=== PATIENT | female | born 1970 | race Caucasian/White ===

== ENCOUNTER 2016-09-10 09:07 | Emergency (ER) | payer BC, OTHER ==
[2016-09-10 09:34] LABS: BILIRUBIN,URINE NEGATIVE (NEGATIVE); PH,URINE 6.5 PH (5.0-7.5)
[2016-09-10 09:37] LABS: HCG UR QUAL NEGATIVE; UA CHARGE (STRIP ONLY) YES; UR CULTURE IF IND NOT INDICATED
--- NOTE | 2016-09-10 10:11 | ED Physician Documentation ---
PD HPI ABD PAIN - Stated complaint Stated Complaint: ABD PAIN,CHEST PRESSURE - Chief complaint Chief Complaint: Abd Pain - History obtained from History obtained from: Patient - History of Present Illness Timing - onset: Enter time (1630), Last night Timing - duration: Hours Timing - details: Abrupt onset, Still present, Waxing and waning Pain level max: 8 Pain level now: 1 Quality: Sharp, Pain Location: RUQ Radiation: Right flank Improved by: Laying still Worsened by: Moving, Position, Palpation Associated symptoms: Nausea, Vomiting Similar symptoms before: No diagnosis Recently seen: Not recently seen - Additional information Additional information: 46 y/o female has been having episodes of right sided abdominal pain for the past 2 months. Yesterday afternoon she had an episode of this that started just after she had a salad. Her pain subsided and she was able to sleep and she awoke had return of the pain and vomited. Her pain is now nearly resolved. Review of Systems Constitutional: denies: Fever Throat: denies: Sore throat Cardiac: denies: Chest pain / pressure Respiratory: denies: Dyspnea, Cough GI: reports: Abdominal Pain, Nausea PD PAST MEDICAL HISTORY - Past Medical History Past Medical History: Yes Cardiovascular: Hypertension - Past Surgical History Past Surgical History: No - Present Medications Home Medications: Ambulatory Orders Medication Instructions Recorded Confirmed Desogestrel-Ethinyl Estradiol 1 each PO 08/17/13 08/17/13 [Reclipsen] Metoprolol Succinate [Toprol Xl] 50 mg PO DAILY 08/17/13 08/17/13 - Allergies Allergies/Adverse Reactions: Allergies Allergy/AdvReac Type Severity Reaction Status Date / Time citalopram hydrobromide * Allergy Intermediate Anxiety Verified 08/17/13 04:08 [From Celexa] sulfamethoxazole AdvReac Intermediate pain Verified 08/17/13 04:09 [From Septra] trimethoprim [From Septra] AdvReac Intermediate pain Verified 08/17/13 04:09 - Social History Does the pt smoke?: No Smoking Status: Former smoker Does the pt drink ETOH?: No Does the pt have substance abuse?: No - Immunizations Immunizations are current?: Yes - POLST Patient has POLST: No PD ED PE NORMAL - Vitals Vital signs reviewed: Yes (hypertensvie ) - General General: Alert and oriented X 3, No acute distress, Well developed/nourished - HEENT HEENT: Atraumatic - Neck Neck: Supple, no meningeal sign - Cardiac Cardiac: RRR, No murmur - Respiratory Respiratory: No respiratory distress, Clear bilaterally - Abdomen Abdomen: Soft, Other (mild right upper quadrant tenderness to palpation,. ) - Back Back: No CVA TTP, No spinal TTP - Derm Derm: Normal color, Warm and dry, No rash - Extremities Extremities: No deformity, No edema - Neuro Neuro: No motor deficit, No sensory deficit - Psych Psych: Normal mood, Normal affect Results - Vitals Vitals: Vital Signs - 24 hr 09/10/16 09/10/16 09/10/16 09:15 11:20 12:27 Temperature 36.7 C 36.7 C Heart Rate 74 61 63 Respiratory 16 16 16 Rate Blood Pressure 167/84 H 143/92 H 133/72 H O2 Saturation 100 100 97 Oxygen O2 Source Room air - Labs Labs: Laboratory Tests 09/10/16 09/10/16 09/10/16 09:25 09:36 09:36 WBC 8.3 RBC 4.83 Hgb 14.2 Hct 41.5 MCV 86.0 MCH 29.5 MCHC 34.3 RDW 13.8 Plt Count 250 MPV 8.6 Neut # 5.2 Lymph # 2.6 Parmer # 0.4 Eos # 0.1 Baso # 0.0 Absolute Nucleated RBC 0.00 Nucleated RBCs 0.0 Sodium 136 Potassium 4.0 Chloride 103 Carbon Dioxide 26 Anion Gap 7.0 BUN 11 Creatinine 0.6 Estimated GFR (MDRD) 109 Glucose 111 H Calcium 9.0 Total Bilirubin 0.8 AST 20 ALT 16 Alkaline Phosphatase 61 Total Protein 8.0 Albumin 4.4 Globulin 3.6 Albumin/Globulin Ratio 1.2 Lipase 23 Urine Color YELLOW Urine Clarity CLEAR Urine pH 6.5 Ur Specific [place] <=1.005 Urine Protein NEGATIVE Urine Glucose (UA) NEGATIVE Urine Ketones NEGATIVE Urine Occult Blood NEGATIVE Urine Nitrite NEGATIVE Urine Bilirubin NEGATIVE Urine Urobilinogen 0.2 (NORMAL) Ur Leukocyte Esterase NEGATIVE Ur Microscopic Review NOT INDICATED Urine Culture Comments NOT INDICATED Urine HCG, Qual NEGATIVE - Rads (name of study) Limited abdomen ultrasound Radiology: Prelim report reviewed (Impression: 1. Gallbladder polyp may have increased in size now measuring 6 mm, previously 4 mm. Continued sonographic followup may be considered. 2. Moderately fatty infiltrated liver. 3. No evidence for acute cholecystitis.), EMP read indepedently, See rad report Procedures - Bedside sono Bedside sono by EMP: with the use of bedside ultrasound the GB is imaged and there are no obvious stones or wall swelling. The gb is mildly tender. PD MEDICAL DECISION MAKING - ED course Complexity details: reviewed old records, reviewed results, re-evaluated patient , considered differential, d/w patient ED course: 46 y/o female with an acute pain episode has a gallbladder polyp that appears to have grown in size since February of last year. There is no evidence of obstruction or cholecystitis. Her pain is now resolved and she is referred to the surgeon for follow up. Departure - Departure Disposition: Home, Self Care Clinical Impression: Gallbladder attack Condition: Stable Instructions: ED Gallstone W Biliary Colic, ED Diet Low Fat Follow-Up: Jovon Pace MD [Primary Care Provider] - Desmond Roland MD [Provider Admit Priv/Credential] - Comments: Today in the Emergency Department your blood pressure was elevated. This can happen from the stress of the visit itself, from a current illness or circumstance or from uncontrolled hypertension. If you take blood pressure medications take your usual mediations, have your blood pressure re-checked in an appropriate setting and follow up any elevation with your primary care doctor. Discharge Date/Time: 09/10/16 12:28
[2016-09-10 10:24] LABS: BASOPHILS % (AUTO) 0.4 %; EOSINOPHILS # (AUTO) 0.1 10^3/uL (0.0-0.7); EOSINOPHILS % (AUTO) 0.7 %; HCT - HEMATOCRIT 41.5 % (37.0-47.0); HGB - HEMOGLOBIN 14.2 g/dL (12.0-16.0); LYMPHOCYTES # (AUTO) 2.6 10^3/uL (1.5-3.5); LYMPHOCYTES % (AUTO) 31.5 %; MEAN CORPUSCULAR HEMOGLOBIN 29.5 pg (27.0-31.0); MEAN CORPUSCULAR HGB CONC 34.3 g/dL (32.0-36.0); MEAN PLATELET VOLUME 8.6 fL (7.9-10.8); MONOCYTES # (AUTO) 0.4 10^3/uL (0.0-1.0); MONOCYTES % (AUTO) 4.9 %; NEUTROPHILS # (AUTO) 5.2 10^3/uL (1.5-6.6); NEUTROPHILS % (AUTO) 62.5 %; RED BLOOD COUNT 4.83 10^6/uL (4.20-5.40); RED CELL DISTRIBUTION WIDTH 13.8 % (12.0-15.0); UNCORRECTED WHITE BLOOD COUNT 8.3 x10^3/uL; WHITE BLOOD COUNT 8.3 x10^3/uL (4.8-10.8)
[2016-09-10 10:32] LABS: ALBUMIN/GLOBULIN RATIO 1.2 (1.0-2.2); BILIRUBIN,TOTAL 0.8 mg/dL (0.2-1.0); CREATININE 0.6 mg/dL (0.4-1.0)
--- NOTE | 2016-09-10 11:58 | Ultrasound Preliminary Report ---
Exam: US Abdomen Limited IMPRESSION: 1. Gallbladder polyp may have increased in size now measuring 6 mm, previously 4 mm. Continued sonogr aphic follow-up may be considered. 2. Moderately fatty infiltrated liver. 3. No evidence for acute cholecystitis. [facility] SITE ID: [id number]
--- NOTE | 2016-09-10 12:01 | Ultrasound Report ---
EXAM: ABDOMEN ULTRASOUND LIMITED, RUQ EXAM DATE: 09/10/2016 11:36 AM. CLINICAL HISTORY: Right upper quadrant abdominal pain. COMPARISON: 02/15/2016. TECHNIQUE: Real-time scanning was performed with static images obtained. FINDINGS: Liver: The liver is moderately echogenic with respect to the right kidney. This limits evaluation but no focal masses identified. Left hepatic hypoechoic focus noted previously is not clearly identified currently. 14.6 cm. Main portal vein flow: Hepatopetal. Gallbladder: Probable polyp again identified measuring 6 mm. No calculi or sonographic Goss sign. N o wall thickening evident. Biliary System: CBD measures 2.4 mm. No intrahepatic or extrahepatic ductal dilatation. Other: Examination suboptimal secondary to body habitus. No ascites evident. IMPRESSION: 1. Gallbladder polyp may have increased in size now measuring 6 mm, previously 4 mm. Continued sonogr aphic follow-up may be considered. 2. Moderately fatty infiltrated liver. 3. No evidence for acute cholecystitis. [facility] Referring Provider Line: [phone] SITE ID: [id number]
[2016-09-10 12:28] VITALS: BP 133/72
== END 2016-09-10 12:28 | disposition home or self-care (01) ==
LOC: ED 09:07
DX: K82.4 Cholesterolosis of gallbladder (principal); K76.0 Fatty (change of) liver, not elsewhere classified; I10 Essential (primary) hypertension; Z87.891 Personal history of nicotine dependence
CPT/HCPCS: 36415; 76705; 80053; 81001; 81003; 81025; 83690; 85025; 87086; 99283; 99284

== ENCOUNTER 2016-09-26 12:00 | Day surgery (SDC) | payer BC ==
[2016-09-26] MEDS ORDERED: ceFAZolin 2 GM/50 ML 50 ML IV ONE (12:05)
[2016-09-26] MEDS ORDERED: LACTATED RINGERS 1,000 ML IV ONE ×2 (12:22→15:16)
[2016-09-26 12:25] LABS: HCG UR QUAL NEGATIVE
[2016-09-26] MEDS ORDERED: BUPIVACAINE 0.5%-EPI 1:200000 PF 30 ML VIAL SUBQ ONE ×2 (13:24→14:16)
[2016-09-26] MEDS ORDERED: DEXAMETHASONE 4 MG/ML VIAL IVP ONE (14:17)
[2016-09-26] MEDS ORDERED: PROPOFOL 200 MG/20 ML VIAL IVP ONE (14:17)
[2016-09-26] MEDS ORDERED: LIDOCAINE-MPF 2% 5 ML VIAL IM ONE (14:17)
[2016-09-26] MEDS ORDERED: fentaNYL 100 MCG/2 ML VIAL IVP ONE (14:17)
[2016-09-26] MEDS ORDERED: ROCURONIUM 50 MG/5 ML VIAL IVP ONE (14:17)
[2016-09-26] MEDS ORDERED: SUCCINYLCHOLINE 200 MG/10 ML VIAL IVP ONE (14:17)
[2016-09-26] MEDS ORDERED: MIDAZOLAM 2 MG/2 ML VIAL IVP ONE (14:17)
[2016-09-26] MEDS ORDERED: KETOROLAC 30 MG/ML VIAL IVP ONE (14:17)
[2016-09-26] MEDS ORDERED: ONDANSETRON 4 MG/2 ML VIAL IVP ONE (14:17)
[2016-09-26] MEDS: HYDROmorphone 1 MG/ML SYRINGE ONE ×4 (15:00→15:18)
[2016-09-26] MEDS ORDERED: oxyCOD/ACETAMIN 5 MG/325 MG TABLET PO ONE (15:46)
[2016-09-26] MEDS ORDERED: ACETAMINOPHEN/CODEINE 300 MG/30 MG TABLET PO ONE (15:55)
[2016-09-26 16:34] VITALS: BP 129/62
--- NOTE | 2016-09-27 06:42 | OPERATIVE REPORT ---
DATE OF SURGERY: 09/26/2016 00:00:00 PREOPERATIVE DIAGNOSIS: Gallbladder polyp. PREOPERATIVE DIAGNOSIS: Gallbladder polyp. POSTOPERATIVE DIAGNOSES: Laparoscopic cholecystectomy. SURGEON: Kathleen García MD INDICATION FOR PROCEDURE: This is a 46-year-old female with a gallbladder polyp , which has been monitored and is increasing in size, and is now being taken for an elective laparoscopic cholecystectomy. FINDINGS: After obtaining informed consent from the patient, she was brought into the operating room and positioned on the operating table in the supine position, taking note of pressure points. She was administered 2 grams of Ancef. She was prepped and draped in the usual sterile fashion. A time-out was taken according to protocol. An infraumbilical 1 cm incision was created and deepened down to the umbilical stalk. This was grasped and elevated and the Veress needle inserted and the abdominal cavity entered. The abdominal cavity was insufflated. A 5 mm incision was created in the epigastric region to the right of the midline, and an Optiview trocar was inserted at this site. The Veress needle was removed and a 12 mm port placed in its place. Two additional 5 mm ports were placed along the right lateral abdominal wall. The gallbladder was grasped and retracted over the dome of the liver. There were some adhesions of the underlying omentum to the gallbladder, which were taken down with electrocautery. The base of the gallbladder was grasped and was retracted medially, exposing the lateral attachments; these were taken down with electrocautery, working my way medially to expose the cystic duct. The cystic duct was circumferentially dissected from surrounding fatty tissue. The cystic artery was dissected similarly. The back wall of the gallbladder was dissected off of the gallbladder fossa. The critical view was obtained. The cystic duct was clipped with 2 clips placed distally and 1 proximally and divided. The cystic artery was divided in a similar manner. The gallbladder was then removed from the liver bed with electrocautery. Gallbladder was placed in a specimen bag and was removed through the umbilical port. The liver bed was then inspected for any signs of bleeding, and none were noted. The umbilical port site was then closed with a Azeem-Jered 0 Vicryl suture. The abdominal cavity was then allowed to desufflate, 30 mL of local anesthetic was utilized. The skin incisions were closed with 4-0 Monocryl and Dermabond was applied. The patient was extubated and taken to recovery in stable condition. ESTIMATED BLOOD LOSS: Minimal. SPECIMEN: Gallbladder. COMPLICATIONS: None. JOB #: [id number] EXT JOB #:[id number] MTDD
== END 2016-09-26 12:01 | disposition home or self-care (01) ==
LOC: SDS 12:00
PROVIDERS: ATTEND Surgery
PROC: 0FT44ZZ Resection of Gallbladder, Percutaneous Endoscopic Approach (ICD-10-PCS; principal; 2016-09-26 13:15)
DX: K81.1 Chronic cholecystitis (principal); I10 Essential (primary) hypertension; Z83.3 Family history of diabetes mellitus; Z80.9 Family history of malignant neoplasm, unspecified; Z87.891 Personal history of nicotine dependence; Z88.2 Allergy status to sulfonamides
CPT/HCPCS: 47562; 81025; A9270; J0690; J1170; J7120; 88304

== ENCOUNTER 2018-03-31 18:10 | Emergency (ER) | payer BC ==
[2018-03-31 19:04] LABS: BILIRUBIN,URINE NEGATIVE (NEGATIVE); GLUCOSE, URINE (UA) NEGATIVE (NEGATIVE); KETONES,URINE (UA) NEGATIVE (NEGATIVE); LEUKOCYTE ESTERASE, URINE SMALL (NEGATIVE); NITRITE,URINE NEGATIVE (NEGATIVE); OCCULT BLOOD,URINE NEGATIVE (NEGATIVE); PH,URINE 5.5 PH (5.0-7.5); PROTEIN,URINE NEGATIVE (NEGATIVE); UROBILINOGEN,URINE 0.2 (NORMAL) E.U./dL (NORMAL)
[2018-03-31 19:07] LABS: CLARITY,URINE CLEAR (CLEAR)
[2018-03-31 19:12] LABS: BASOPHILS % (AUTO) 0.2 %; HGB - HEMOGLOBIN 14.3 g/dL (12.0-16.0); LYMPHOCYTES # (AUTO) 0.8 10^3/uL (1.5-3.5); LYMPHOCYTES % (AUTO) 6.3 %; MEAN CORPUSCULAR HEMOGLOBIN 28.9 pg (27.0-31.0); MEAN CORPUSCULAR HGB CONC 33.4 g/dL (32.0-36.0); MEAN CORPUSCULAR VOLUME 86.5 fL (81.0-99.0); MEAN PLATELET VOLUME 7.9 fL (7.9-10.8); MONOCYTES # (AUTO) 0.5 10^3/uL (0.0-1.0); MONOCYTES % (AUTO) 3.4 %; NEUTROPHILS # (AUTO) 12.1 10^3/uL (1.5-6.6); NEUTROPHILS % (AUTO) 90.1 %; PLT - PLATELET COUNT 238 10^3/uL (130-450); RED BLOOD COUNT 4.96 10^6/uL (4.20-5.40); WHITE BLOOD COUNT 13.4 x10^3/uL (4.8-10.8)
[2018-03-31 19:16] LABS: ALBUMIN 4.8 g/dL (3.2-5.5); ALBUMIN/GLOBULIN RATIO 1.2 (1.0-2.2); BILIRUBIN,TOTAL 0.6 mg/dL (0.2-1.0); CALCIUM 9.2 mg/dL (8.5-10.3); CREATININE 0.7 mg/dL (0.4-1.0); TOTAL PROTEIN 8.7 g/dL (6.7-8.2)
[2018-03-31 19:19] LABS: BACTERIA,URINE None Seen /HPF (None Seen); RBC,URINE None Seen /HPF (0-5); SQUAMOUS EPITHELIAL CELL,UR MOD Squamous (<= Few)
--- NOTE | 2018-03-31 19:19 | ED Physician Documentation ---
PD HPI URI - Stated complaint Stated Complaint: SINUS PX/LOW BACK PX/ABD PX/GAS - Chief complaint Chief Complaint: Abd Pain - History obtained from History obtained from: Patient - History of Present Illness Timing - onset: Today (47-year-old woman who became acutely ill today with sinus, abdominal, and back pain. She has had fevers and chills. She vomited Twice. No diarrhea. No sick contacts or recent travel.) Review of Systems Constitutional: reports: Fever, Chills Ears: denies: Ear pain Nose: reports: Rhinorrhea / runny nose, Congestion, Sinus pressure / pain Throat: denies: Sore throat Cardiac: denies: Chest pain / pressure, Palpitations Respiratory: denies: Dyspnea, Cough PD PAST MEDICAL HISTORY - Past Medical History Past Medical History: Yes Cardiovascular: Hypertension Respiratory: None Endocrine/Autoimmune: None GI: Ulcers : None HEENT: None Psych: Anxiety Musculoskeletal: None Derm: None - Past Surgical History Past Surgical History: No General: Cholecystectomy - Present Medications Home Medications: Ambulatory Orders Medication Instructions Recorded Confirmed Desogestrel-Ethinyl Estradiol 1 each PO DAILY 08/17/13 09/26/16 [Reclipsen] Metoprolol Succinate [Toprol Xl] 50 mg PO DAILY 08/17/13 09/26/16 Levofloxacin [Levaquin] 750 mg PO DAILY #7 tablet 03/31/18 Pantoprazole [Protonix] 40 mg PO 03/31/18 03/31/18 - Allergies Allergies/Adverse Reactions: Allergies Allergy/AdvReac Type Severity Reaction Status Date / Time citalopram hydrobromide * Allergy Intermediate Anxiety Verified 03/31/18 19:11 [From Celexa] sulfamethoxazole AdvReac Intermediate pain Verified 03/31/18 19:11 [From Septra] trimethoprim [From Septra] AdvReac Intermediate pain Verified 03/31/18 19:11 - Social History Does the pt smoke?: No Smoking Status: Never smoker Does the pt drink ETOH?: No Does the pt have substance abuse?: No - Immunizations Immunizations are current?: Yes - POLST Patient has POLST: No PD ED PE NORMAL - Vitals Vital signs reviewed: Yes - General General: Alert and oriented X 3, No acute distress - HEENT HEENT: PERRL, EOMI, Pharynx benign - Neck Neck: Supple, no meningeal sign, No bony TTP - Cardiac Cardiac: RRR, No murmur - Respiratory Respiratory: No respiratory distress, Clear bilaterally - Abdomen Abdomen: Normal bowel sounds, Soft, Non tender - Back Back: No CVA TTP, No spinal TTP - Derm Derm: Normal color, Warm and dry - Extremities Extremities: No edema, No calf tenderness / cord - Neuro Neuro: Alert and oriented X 3, Normal speech Results - Vitals Vitals: Vital Signs - 24 hr 03/31/18 03/31/18 03/31/18 18:12 19:25 21:11 Temperature 38 C H 37.9 C H 37.6 C H Heart Rate 123 H 110 H 109 H Respiratory 20 18 16 Rate Blood Pressure 159/114 H 170/97 H 146/85 H O2 Saturation 100 100 97 Oxygen O2 Source Room air - EKG (time done) 1831 Rate: Rate (enter#) (113) Rhythm: Sinus tachycardia Alvin: Normal Intervals: Normal MN QRS: Normal Ischemia: Normal ST segments Computer interpretation: Agree with computer - Labs Labs: Laboratory Tests 03/31/18 03/31/18 03/31/18 18:56 18:56 18:56 WBC 13.4 H RBC 4.96 Hgb 14.3 Hct 42.9 MCV 86.5 MCH 28.9 MCHC 33.4 RDW 13.0 Plt Count 238 MPV 7.9 Neut # (Auto) 12.1 H Lymph # (Auto) 0.8 L [place] # (Auto) 0.5 Eos # (Auto) 0.0 Baso # (Auto) 0.0 Absolute Nucleated RBC 0.00 Nucleated RBC % 0.0 Sodium 130 L Potassium 3.9 Chloride 98 L Carbon Dioxide 24 Anion Gap 8.0 BUN 15 Creatinine 0.7 Estimated GFR (MDRD) 90 Glucose 128 H Calcium 9.2 Total Bilirubin 0.6 AST 26 ALT 22 Alkaline Phosphatase 62 Total Protein 8.7 H Albumin 4.8 Globulin 3.9 Albumin/Globulin Ratio 1.2 Lipase 27 Urine Color YELLOW Urine Clarity CLEAR Urine pH 5.5 Ur Specific [place] 1.010 Urine Protein NEGATIVE Urine Glucose (UA) NEGATIVE Urine Ketones NEGATIVE Urine Occult Blood NEGATIVE Urine Nitrite NEGATIVE Urine Bilirubin NEGATIVE Urine Urobilinogen 0.2 (NORMAL) Ur Leukocyte Esterase SMALL H Urine RBC None Seen Urine WBC 0-3 Ur Squamous Epith Cells MOD Squamous H Urine Bacteria None Seen Ur Microscopic Review INDICATED Urine Culture Comments NOT INDICATED Influenza A (Rapid) Influenza B (Rapid) 03/31/18 19:30 WBC RBC Hgb Hct MCV MCH MCHC RDW Plt Count MPV Neut # (Auto) Lymph # (Auto) [place] # (Auto) Eos # (Auto) Baso # (Auto) Absolute Nucleated RBC Nucleated RBC % Sodium Potassium Chloride Carbon Dioxide Anion Gap BUN Creatinine Estimated GFR (MDRD) Glucose Calcium Total Bilirubin AST ALT Alkaline Phosphatase Total Protein Albumin Globulin Albumin/Globulin Ratio Lipase Urine Color Urine Clarity Urine pH Ur Specific [place] Urine Protein Urine Glucose (UA) Urine Ketones Urine Occult Blood Urine Nitrite Urine Bilirubin Urine Urobilinogen Ur Leukocyte Esterase Urine RBC Urine WBC Ur Squamous Epith Cells Urine Bacteria Ur Microscopic Review Urine Culture Comments Influenza A (Rapid) Negative Influenza B (Rapid) Negative - Rads (name of study) 2v chest Radiology: EMP read contemporaneously (LLL opacity) CT A/P Radiology: EMP read contemporaneously (Normal) PD MEDICAL DECISION MAKING - ED course ED course: This is a 47-year-old woman with an acute syndrome consisting of sinus pain, abdominal and back pain. She was somewhat tachycardic and febrile which improved with time and fluids. She continued to appear well and nontoxic. She had a modestly elevated white count. Workup included abdominal CT which was negative for acute findings and chest x-ray which was suggestive of an early left lower lobe pneumonia. She was treated with Levaquin. Departure - Departure Disposition: 01 Home, Self Care Clinical Impression: Abdominal pain Qualifiers: Abdominal location: generalized Qualified Code(s): R10.84 - Generalized abdominal pain Fever Qualifiers: Fever type: due to other condition Qualified Code(s): R50.81 - Fever presenting with conditions classified elsewhere Pneumonia Qualifiers: Pneumonia type: due to unspecified organism Laterality: left Lung location: lower lobe of lung Qualified Code(s): J18.1 - Lobar pneumonia, unspecified organism Condition: Good Record reviewed to determine appropriate education?: Yes Instructions: ED Pneumonia Adult, ED Fever Unconf Cause Prescriptions: Levofloxacin [Levaquin] 750 mg PO DAILY #7 tablet Comments: Call your doctor to arrange a follow-up appointment, make the next available appointment. In the interim, return anytime if worse or if new symptoms develop. Forms: Activity restrictions
[2018-03-31] MEDS ORDERED: IBUPROFEN 800 MG TABLET PO STA (19:36)
[2018-03-31] MEDS ORDERED: IOVERSOL 320 100 ML VIAL IVP ONE ×2 (20:29→20:58)
--- NOTE | 2018-03-31 21:16 | XRAY Report ---
Reason: fever Procedure Date: 03/31/2018 Accession Number: [id number] / [id number] Procedure: XR - Chest 2 View X-Ray CPT Code: 69232 FULL RESULT: EXAM: CHEST RADIOGRAPHY EXAM DATE: 03/31/2018 08:37 PM. CLINICAL HISTORY: Fever. COMPARISON: None available. TECHNIQUE: 2 views. FINDINGS: Heart size is normal. Lung volumes are low. There is a focal patchy opacity in the left lower lobe. No pleural effusion or pneumothorax. IMPRESSION: Patchy left lower lobe opacity, possible atelectasis or pneumonia. [facility]
--- NOTE | 2018-03-31 21:29 | CT Report ---
Reason: iV only, abd pain, fever Procedure Date: 03/31/2018 Accession Number: [id number] / [id number] Procedure: CT - Abdomen/Pelvis W/ CPT Code: FULL RESULT: EXAM: CT ABDOMEN AND PELVIS EXAM DATE: 03/31/2018 08:37 PM. CLINICAL HISTORY: Abdominal pain and fever COMPARISONS: None. TECHNIQUE: Routine helical CT imaging was performed through the abdomen and pelvis. IV contrast: 100 ML OPTIRAY 320. Enteric contrast: No. Reconstructions: Coronal and sagittal. In accordance with CT protocol optimization, one or more of the following dose reduction techniques were utilized for this exam: automated exposure control, adjustment of mA and/or KV based on patient size, or use of iterative reconstructive technique. FINDINGS: Lung Bases: Unremarkable. Liver: Normal. No masses. Gallbladder/Bile Ducts: Status post cholecystectomy. No bile duct dilatation. Spleen: Normal. Pancreas: Normal. Adrenal Glands: Normal. Kidneys: Normal. No masses or hydronephrosis. Peritoneal Cavity/Bowel: Normal appendix. No acute bowel findings are seen. No evidence for bowel obstruction. No free fluid or free air. There appear to be very small fat-containing bilateral inguinal hernias, left greater than right. Pelvic Organs: Normal. The bladder and visualized pelvic organs are within normal limits. Vasculature: No aneurysms or other significant abnormality. Bones: No significant abnormality. There appear to be very small fat-containing bilateral inguinal hernias, left greater than right. IMPRESSION: 1. Normal appendix. No acute findings are seen. See above. [facility]
[2018-03-31] MEDS ORDERED: levoFLOXacin 250 MG TABLET PO STA (21:34)
[2018-03-31 21:50] VITALS: BP 140/56
== END 2018-03-31 21:45 | disposition home or self-care (01) ==
LOC: ED 18:10
DX: J18.1 Lobar pneumonia, unspecified organism (principal); R10.84 Generalized abdominal pain; I10 Essential (primary) hypertension; R00.0 Tachycardia, unspecified
CPT/HCPCS: 36415; 71046; 74177; 80053; 81001; 83690; 85025; 87275; 87276; 93005; 99283; A9270; Q9967; 81003; 87086

== ENCOUNTER 2018-07-09 10:41 | Outpatient (CLI) | payer BC ==
[2018-07-09 19:53] LABS: BASOPHILS % (AUTO) 0.4 %; EOSINOPHILS # (AUTO) 0.1 10^3/uL (0.0-0.7); EOSINOPHILS % (AUTO) 0.7 %; HGB - HEMOGLOBIN 13.9 g/dL (12.0-16.0); LYMPHOCYTES # (AUTO) 2.7 10^3/uL (1.5-3.5); LYMPHOCYTES % (AUTO) 31.7 %; MEAN CORPUSCULAR HEMOGLOBIN 29.2 pg (27.0-31.0); MEAN CORPUSCULAR HGB CONC 33.1 g/dL (32.0-36.0); MEAN CORPUSCULAR VOLUME 88.1 fL (81.0-99.0); MEAN PLATELET VOLUME 8.2 fL (7.9-10.8); MONOCYTES # (AUTO) 0.5 10^3/uL (0.0-1.0); MONOCYTES % (AUTO) 6.2 %; NEUTROPHILS # (AUTO) 5.2 10^3/uL (1.5-6.6); PLT - PLATELET COUNT 250 10^3/uL (130-450); RED BLOOD COUNT 4.77 10^6/uL (4.20-5.40); RED CELL DISTRIBUTION WIDTH 14.3 % (12.0-15.0); WHITE BLOOD COUNT 8.5 x10^3/uL (4.8-10.8)
== END 2018-07-09 10:42 | disposition home or self-care (01) ==
LOC: LAB.WCP 10:41
PROVIDERS: ATTEND Family Medicine
DX: K92.1 Melena (principal)
CPT/HCPCS: 36415; 85025

== ENCOUNTER 2018-08-20 08:00 | Outpatient (CLI) | payer BC ==
[2018-08-20 12:25] LABS: BASOPHILS % (AUTO) 0.4 %; EOSINOPHILS # (AUTO) 0.1 10^3/uL (0.0-0.7); EOSINOPHILS % (AUTO) 0.7 %; LYMPHOCYTES # (AUTO) 2.6 10^3/uL (1.5-3.5); LYMPHOCYTES % (AUTO) 30.6 %; MEAN CORPUSCULAR HEMOGLOBIN 29.2 pg (27.0-31.0); MEAN CORPUSCULAR HGB CONC 34.1 g/dL (32.0-36.0); MEAN CORPUSCULAR VOLUME 85.7 fL (81.0-99.0); MEAN PLATELET VOLUME 8.7 fL (7.9-10.8); MONOCYTES # (AUTO) 0.5 10^3/uL (0.0-1.0); MONOCYTES % (AUTO) 5.5 %; NEUTROPHILS # (AUTO) 5.3 10^3/uL (1.5-6.6); NEUTROPHILS % (AUTO) 62.8 %; PLT - PLATELET COUNT 246 10^3/uL (130-450); RED BLOOD COUNT 4.79 10^6/uL (4.20-5.40); RED CELL DISTRIBUTION WIDTH 13.5 % (12.0-15.0); WHITE BLOOD COUNT 8.4 x10^3/uL (4.8-10.8)
[2018-08-20 13:12] LABS: ALBUMIN/GLOBULIN RATIO 1.1 (1.0-2.2); ALKALINE PHOSPHATASE 51 IU/L (42-121); ALT ALANINE AMINOTRANSFERASE 17 IU/L (10-60); AST ASPARTATE AMINOTRANSFERASE 19 IU/L (10-42); BILIRUBIN,TOTAL 0.8 mg/dL (0.2-1.0); BUN - BLOOD UREA NITROGEN 19 mg/dL (6-20); CALCIUM 8.7 mg/dL (8.5-10.3); CARBON DIOXIDE - CO2 26 mmol/L (21-32); CHLORIDE 102 mmol/L (101-111); CHOL/HDL RATIO 5.3 (<4.4); CHOLESTEROL 175 mg/dL; CREATININE 0.8 mg/dL (0.4-1.0); GFR - MDRD 78 (>89); GLUCOSE 114 mg/dL (70-100); HDL CHOLESTEROL 33 mg/dL; LDL CHOLESTEROL,CALCULATED 104 mg/dL; LDL/HDL RATIO 3.2 (<4.4); SODIUM 134 mmol/L (135-145); TOTAL PROTEIN 7.5 g/dL (6.7-8.2); VLDL CHOLESTEROL 38 mg/dL
== END 2018-08-20 23:59 | disposition home or self-care (01) ==
LOC: LAB.WCP 08:00
PROVIDERS: ATTEND Family Medicine
DX: K76.0 Fatty (change of) liver, not elsewhere classified (principal); E78.5 Hyperlipidemia, unspecified; I10 Essential (primary) hypertension
CPT/HCPCS: 36415; 80053; 80061; 83721; 85025

== ENCOUNTER 2018-09-06 09:07 | Day surgery (SDC) | payer BC ==
[~2018-09-06 09:07] MED LIST: LIDO GARGLE 30 ML BOTTLE ONE
[2018-09-06] MEDS ORDERED: LACTATED RINGERS 1,000 ML IV ONE (09:25)
[2018-09-06 09:44] LABS: HCG UR QUAL NEGATIVE
[2018-09-06] MEDS ORDERED: MIDAZOLAM 2 MG/2 ML VIAL IVP ONE (12:09)
[2018-09-06] MEDS ORDERED: fentaNYL 250 MCG/5 ML VIAL IVP ONE (12:09)
[2018-09-06 13:18] VITALS: BP 131/82
== END 2018-09-06 09:08 | disposition home or self-care (01) ==
LOC: SDS 09:07
PROVIDERS: ATTEND Internal Medicine Gastroenterology
PROC: 0DBN8ZZ Excision of Sigmoid Colon, Via Natural or Artificial Opening Endoscopic (ICD-10-PCS; 2018-09-06)
PROC: 0DB38ZX Excision of Lower Esophagus, Via Natural or Artificial Opening Endoscopic, Diagnostic (ICD-10-PCS; principal; 2018-09-06 10:30)
PROC: 0DB68ZZ Excision of Stomach, Via Natural or Artificial Opening Endoscopic (ICD-10-PCS; 2018-09-06 10:30)
DX: K22.70 Barrett's esophagus without dysplasia (principal); K21.0 Gastro-esophageal reflux disease with esophagitis; K31.7 Polyp of stomach and duodenum; K63.5 Polyp of colon; K59.00 Constipation, unspecified; K62.89 Other specified diseases of anus and rectum; K64.8 Other hemorrhoids; E28.2 Polycystic ovarian syndrome; F41.9 Anxiety disorder, unspecified; F32.9 Major depressive disorder, single episode, unspecified
CPT/HCPCS: 43239; 45380; 81025; A9270; J3010; J7120

== ENCOUNTER 2018-09-27 13:22 | Outpatient (CLI) | payer BC ==
--- NOTE | 2018-09-28 09:07 | Mammography Report ---
Reason: SCREENING MAMMO FOR BRST CA Procedure Date: 09/27/2018 Accession Number: [id number] / [id number] Procedure: KATIE - Screening Mammo w/[facility] CPT Code: FULL RESULT: EXAM: Screening Mammo w/[facility] DATE: 09/27/2018 1:53 PM CLINICAL HISTORY: Screening encounter. History of late childbearing. TECHNIQUE: (B) - Bilateral CC and MLO views were obtained. COMPARISON: 02/15/2016. PARENCHYMAL PATTERN: (F) - The breast(s) demonstrate(s) diffuse fatty replacement. FINDINGS: There are no suspicious masses, calcifications, or areas of distortion. IMPRESSION: Negative examination. BI-RADS category 1. RECOMMENDATION: (ANNUAL) - Recommend routine annual screening mammography. BI-RADS CATEGORY: (1) - Negative. STANDARD QUALIFYING STATEMENTS: 1. This examination was not reviewed with the aid of Computer-Aided Detection (CAD). 2. A negative or benign imaging report should not preclude biopsy if clinically suspicious findings are present. 3. Dense breasts may obscure an underlying neoplasm. 4. This examination was reviewed with the aid of 3D breast imaging (tomosynthesis).
== END 2018-09-27 13:23 | disposition home or self-care (01) ==
LOC: DI 13:22
PROVIDERS: ATTEND Family Medicine
DX: Z12.31 Encounter for screening mammogram for malignant neoplasm of breast (principal)
CPT/HCPCS: 77063; 77067

== ENCOUNTER 2019-05-03 17:00 | Outpatient (CLI) | payer BC | END 2019-05-03 23:59 | disposition home or self-care (01) | LOC: LAB.R 17:00 | PROVIDERS: ATTEND Nurse Practitioner Family | DX: N39.0 Urinary tract infection, site not specified (principal) | CPT/HCPCS: 87086 ==

== ENCOUNTER 2019-07-12 21:12 | Emergency (ER) | payer BC, OTHER ==
--- NOTE | 2019-07-12 22:04 | XRAY Report ---
Reason: cough Procedure Date: 07/12/2019 Accession Number: [id number] / [id number] Procedure: XR - Chest 2 View X-Ray CPT Code: 15800 Final Report FULL RESULT: EXAM: CHEST RADIOGRAPHY EXAM DATE: 07/12/2019 09:58 PM. CLINICAL HISTORY: Cough. COMPARISON: CHEST 2 VIEW 03/31/2018 8:31 PM. TECHNIQUE: 2 views. FINDINGS: Lungs/Pleura: No focal opacities evident. No pleural effusion. No pneumothorax. Normal volumes. Mediastinum: Heart and mediastinal contours are unremarkable. Other: None. IMPRESSION: Normal 2-view chest radiography. [facility]
--- NOTE | 2019-07-12 22:17 | ED Physician Documentation ---
PD HPI URI - Stated complaint Stated Complaint: CP/COUGH/CHILLS - Chief complaint Chief Complaint: Heent - History obtained from History obtained from: Patient - History of Present Illness Timing - onset: Yesterday Timing details: Gradual onset Associated symptoms: Chills, Productive cough, Dyspnea. No: Fever Improves by: Other (no ameliorating factors) Worsened by: Other (no exacerbating factors) Similar symptoms before: Has not had sx before Recently seen: Not recently seen - Additional information Additional information: c/o chest pressure since yesterday, constant, with productive cough, chest congestion, chills Review of Systems Constitutional: reports: Chills. denies: Fever Throat: denies: Sore throat Cardiac: reports: Chest pain / pressure. denies: Palpitations, Pedal edema, Calf pain Respiratory: reports: Dyspnea (mild DE PAZ), Cough. 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 : None HEENT: None Psych: Anxiety Musculoskeletal: None Derm: None - Past Surgical History Past Surgical History: No General: Cholecystectomy - Present Medications Home Medications: Ambulatory Orders Medication Instructions Recorded Confirmed Desogestrel-Ethinyl Estradiol 1 each PO DAILY 08/17/13 09/05/18 [Reclipsen] Metoprolol Succinate [Toprol Xl] 50 mg PO DAILY 08/17/13 09/05/18 Pantoprazole [Protonix] 40 mg PO DAILY 03/31/18 09/05/18 - Allergies Allergies/Adverse Reactions: Allergies Allergy/AdvReac Type Severity Reaction Status Date / Time citalopram hydrobromide * Allergy Intermediate Anxiety Verified 07/12/19 21:25 [From Celexa] sulfamethoxazole AdvReac Intermediate pain Verified 07/12/19 21:25 [From Septra] trimethoprim [From Septra] AdvReac Intermediate pain Verified 07/12/19 21:25 - Social History Does the pt smoke?: No Smoking Status: Never smoker Does the pt drink ETOH?: No Does the pt have substance abuse?: No - Immunizations Immunizations are current?: Yes - POLST Patient has POLST: No PD ED PE NORMAL - Vitals Vital signs reviewed: Yes - General General: Alert and oriented X 3, No acute distress, Well developed/nourished - HEENT HEENT: Moist mucous membranes - Cardiac Cardiac: RRR, No murmur, No gallop, No rub - Respiratory Respiratory: No respiratory distress, Clear bilaterally - Abdomen Abdomen: Soft, Non tender - Derm Derm: Normal color, Warm and dry - Extremities Extremities: No edema Results - Vitals Vitals: Vital Signs - 24 hr 07/12/19 07/12/19 07/12/19 21:20 21:46 23:14 Temperature 37.1 C Heart Rate 100 78 100 Respiratory 18 19 16 Rate Blood Pressure 156/107 H 162/87 H 180/100 H O2 Saturation 98 99 99 07/12/19 07/13/19 07/13/19 23:39 00:35 00:47 Temperature Heart Rate 100 100 Respiratory 16 16 17 Rate Blood Pressure 178/106 H 172/92 H O2 Saturation 98 100 07/13/19 00:52 Temperature Heart Rate Respiratory 16 Rate Blood Pressure O2 Saturation Oxygen O2 Source Room air - EKG (time done) No standard instances Rate: Rate (enter#) (103), Tachy Rhythm: Sinus tachycardia [place]: Normal Intervals: Normal [place] QRS: Normal Ischemia: Normal ST segments - Labs Labs: Laboratory Tests 07/12/19 07/12/19 07/12/19 21:45 23:13 23:13 WBC 9.1 RBC 4.61 Hgb 13.6 Hct 40.6 MCV 88.1 MCH 29.5 MCHC 33.5 RDW 13.0 Plt Count 263 MPV 9.5 Neut # (Auto) 5.4 Lymph # (Auto) 3.0 [place] # (Auto) 0.6 Eos # (Auto) 0.1 Baso # (Auto) 0.0 Absolute Nucleated RBC 0.00 Nucleated RBC % 0.0 Sodium 134 L Potassium 3.7 Chloride 102 Carbon Dioxide 25 Anion Gap 7.0 BUN 17 Creatinine 0.8 Estimated GFR (MDRD) 77 L Glucose 130 H Calcium 8.8 Troponin I High Sens Influenza A (Rapid) Negative Influenza B (Rapid) Negative 07/12/19 23:13 WBC RBC Hgb Hct MCV MCH MCHC RDW Plt Count MPV Neut # (Auto) Lymph # (Auto) [place] # (Auto) Eos # (Auto) Baso # (Auto) Absolute Nucleated RBC Nucleated RBC % Sodium Potassium Chloride Carbon Dioxide Anion Gap BUN Creatinine Estimated GFR (MDRD) Glucose Calcium Troponin I High Sens 2.7 Influenza A (Rapid) Influenza B (Rapid) - Rads (name of study) chest xray Radiology: Prelim report reviewed, See rad report PD MEDICAL DECISION MAKING - ED course Complexity details: reviewed results, re-evaluated patient, considered differential, d/w patient Departure - Departure Disposition: 01 Home, Self Care Clinical Impression: Bronchitis Condition: Good Instructions: ED Upper Resp Infec No Abx Tx, ED Chest Pain Atypical Unkn Cause Follow-Up: Angel Fitzpatrick DO [Primary Care Provider] - Forms: Activity restrictions Discharge Date/Time: 07/13/19 00:53
[2019-07-12 23:18] LABS: BASOPHILS % (AUTO) 0.4 %; EOSINOPHILS # (AUTO) 0.1 10^3/uL (0.0-0.7); EOSINOPHILS % (AUTO) 0.9 %; HGB - HEMOGLOBIN 13.6 g/dL (12.0-16.0); LYMPHOCYTES % (AUTO) 32.6 %; MEAN CORPUSCULAR HEMOGLOBIN 29.5 pg (27.0-31.0); MEAN CORPUSCULAR HGB CONC 33.5 g/dL (32.0-36.0); MEAN CORPUSCULAR VOLUME 88.1 fL (81.0-99.0); MEAN PLATELET VOLUME 9.5 fL (7.9-10.8); MONOCYTES # (AUTO) 0.6 10^3/uL (0.0-1.0); MONOCYTES % (AUTO) 6.8 %; NEUTROPHILS # (AUTO) 5.4 10^3/uL (1.5-6.6); PLT - PLATELET COUNT 263 10^3/uL (130-450); RED BLOOD COUNT 4.61 10^6/uL (4.20-5.40); WHITE BLOOD COUNT 9.1 x10^3/uL (4.8-10.8)
[2019-07-12 23:26] LABS: CALCIUM 8.8 mg/dL (8.5-10.3); CREATININE 0.8 mg/dL (0.4-1.0)
[2019-07-13 00:36] VITALS: BP 172/92
== END 2019-07-13 00:53 | disposition home or self-care (01) ==
LOC: ED 21:12
DX: J40 Bronchitis, not specified as acute or chronic (principal); R00.0 Tachycardia, unspecified; I10 Essential (primary) hypertension
CPT/HCPCS: 36415; 71046; 80048; 84484; 85025; 87275; 87276; 93005; 99282; 99284

== ENCOUNTER 2019-07-29 15:47 | Outpatient (CLI) | payer OTHER ==
[2019-07-29 18:51] LABS: BASOPHILS % (AUTO) 0.4 %; EOSINOPHILS % (AUTO) 0.2 %; HGB - HEMOGLOBIN 14.1 g/dL (12.0-16.0); LYMPHOCYTES # (AUTO) 2.9 10^3/uL (1.5-3.5); LYMPHOCYTES % (AUTO) 26.4 %; MEAN CORPUSCULAR HEMOGLOBIN 29.6 pg (27.0-31.0); MEAN CORPUSCULAR HGB CONC 33.3 g/dL (32.0-36.0); MEAN CORPUSCULAR VOLUME 88.7 fL (81.0-99.0); MEAN PLATELET VOLUME 10.4 fL (7.9-10.8); MONOCYTES # (AUTO) 0.6 10^3/uL (0.0-1.0); MONOCYTES % (AUTO) 5.1 %; NEUTROPHILS # (AUTO) 7.4 10^3/uL (1.5-6.6); NEUTROPHILS % (AUTO) 67.5 %; PLT - PLATELET COUNT 282 10^3/uL (130-450); RED BLOOD COUNT 4.77 10^6/uL (4.20-5.40); RED CELL DISTRIBUTION WIDTH 13.1 % (12.0-15.0)
== END 2019-07-29 23:59 | disposition home or self-care (01) ==
LOC: LAB.WCP 15:47
PROVIDERS: ATTEND Family Medicine
DX: K62.5 Hemorrhage of anus and rectum (principal)
CPT/HCPCS: 36415; 85025

== ENCOUNTER 2019-08-16 10:47 | Outpatient (CLI) | payer OTHER ==
[2019-08-16 13:00] LABS: BASOPHILS # (AUTO) 0.1 10^3/uL (0.0-0.1); BASOPHILS % (AUTO) 0.7 %; EOSINOPHILS # (AUTO) 0.1 10^3/uL (0.0-0.7); EOSINOPHILS % (AUTO) 0.7 %; HGB - HEMOGLOBIN 14.2 g/dL (12.0-16.0); LYMPHOCYTES # (AUTO) 2.6 10^3/uL (1.5-3.5); LYMPHOCYTES % (AUTO) 32.3 %; MEAN CORPUSCULAR HEMOGLOBIN 28.9 pg (27.0-31.0); MEAN CORPUSCULAR HGB CONC 32.4 g/dL (32.0-36.0); MEAN CORPUSCULAR VOLUME 89.2 fL (81.0-99.0); MEAN PLATELET VOLUME 10.3 fL (7.9-10.8); MONOCYTES # (AUTO) 0.5 10^3/uL (0.0-1.0); NEUTROPHILS # (AUTO) 4.8 10^3/uL (1.5-6.6); NEUTROPHILS % (AUTO) 59.9 %; PLT - PLATELET COUNT 296 10^3/uL (130-450); RED BLOOD COUNT 4.91 10^6/uL (4.20-5.40); RED CELL DISTRIBUTION WIDTH 12.8 % (12.0-15.0); WHITE BLOOD COUNT 8.1 x10^3/uL (4.8-10.8)
[2019-08-16 13:16] LABS: ALBUMIN 4.2 g/dL (3.2-5.5); ALBUMIN/GLOBULIN RATIO 1.2 (1.0-2.2); ALKALINE PHOSPHATASE 64 IU/L (42-121); ALT ALANINE AMINOTRANSFERASE 26 IU/L (10-60); AST ASPARTATE AMINOTRANSFERASE 25 IU/L (10-42); BILIRUBIN,TOTAL 0.5 mg/dL (0.2-1.0); BUN - BLOOD UREA NITROGEN 15 mg/dL (6-20); CALCIUM 8.9 mg/dL (8.5-10.3); CARBON DIOXIDE - CO2 27 mmol/L (21-32); CHLORIDE 105 mmol/L (101-111); CHOL/HDL RATIO 5.7 (<4.4); CHOLESTEROL 200 mg/dL; CREATININE 0.6 mg/dL (0.4-1.0); GLUCOSE 104 mg/dL (70-100); HDL CHOLESTEROL 35 mg/dL; LDL CHOLESTEROL,CALCULATED 122 mg/dL; LDL/HDL RATIO 3.5 (<4.4); SODIUM 137 mmol/L (135-145); TOTAL PROTEIN 7.7 g/dL (6.7-8.2); VLDL CHOLESTEROL 43 mg/dL
== END 2019-08-16 23:59 | disposition home or self-care (01) ==
LOC: LAB.WCP 10:47
PROVIDERS: ATTEND Family Medicine
DX: E88.81 Metabolic syndrome and other insulin resistance (principal); I10 Essential (primary) hypertension; Z79.899 Other long term (current) drug therapy; E66.9 Obesity, unspecified; E78.5 Hyperlipidemia, unspecified
CPT/HCPCS: 36415; 80053; 80061; 83721; 84443; 85025

== ENCOUNTER 2019-10-27 12:12 | Emergency (ER) | payer OTHER ==
[2019-10-27 12:33] LABS: BILIRUBIN,URINE NEGATIVE (NEGATIVE); GLUCOSE, URINE (UA) NEGATIVE (NEGATIVE); KETONES,URINE (UA) NEGATIVE (NEGATIVE); LEUKOCYTE ESTERASE, URINE TRACE (NEGATIVE); NITRITE,URINE NEGATIVE (NEGATIVE); OCCULT BLOOD,URINE NEGATIVE (NEGATIVE); PROTEIN,URINE NEGATIVE (NEGATIVE); UROBILINOGEN,URINE 0.2 (NORMAL) E.U./dL (NORMAL)
[2019-10-27 12:35] LABS: CLARITY,URINE CLEAR (CLEAR)
--- NOTE | 2019-10-27 12:35 | ED Physician Documentation ---
PD HPI ABD PAIN - Stated complaint Stated Complaint: NAUSEA/ABD PX - Chief complaint Chief Complaint: Abd Pain - History obtained from History obtained from: Patient - Additional information Additional information: 49-year-old woman with history of cholecystectomy, Iniguez's esophagus presents with a little bit under a weeks worth of migratory abdominal pain that is focused in the right lower quadrant. It is associated with nausea which is better now. She denies fevers. Bowel movements have been normal. She feels like she might have a UTI citing specific symptoms of nausea and urinary freque ncy but no dysuria. 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 HEENT: None Psych: Anxiety Musculoskeletal: None Derm: None - Past Surgical History Past Surgical History: No General: Cholecystectomy - Present Medications Home Medications: Ambulatory Orders Medication Instructions Recorded Confirmed Desogestrel-Ethinyl Estradiol 1 each PO DAILY 08/17/13 09/05/18 [Reclipsen] Metoprolol Succinate [Toprol Xl] 50 mg PO DAILY 08/17/13 09/05/18 Pantoprazole [Protonix] 40 mg PO DAILY 03/31/18 09/05/18 Nitrofurantoin Monohyd/M-Cryst 100 mg PO BID #10 capsule 10/27/19 [Macrobid 100 mg Capsule] Ondansetron Odt [Zofran] 4 mg TL Q6H PRN #10 tablet 10/27/19 - Allergies Allergies/Adverse Reactions: Allergies Allergy/AdvReac Type Severity Reaction Status Date / Time citalopram hydrobromide * Allergy Intermediate Anxiety Verified 10/27/19 12:24 [From Celexa] sulfamethoxazole AdvReac Intermediate pain Verified 10/27/19 12:24 [From Septra] trimethoprim [From Septra] AdvReac Intermediate pain Verified 10/27/19 12:24 - Social History Does the pt smoke?: No Smoking Status: Never smoker Does the pt drink ETOH?: No Does the pt have substance abuse?: No - Immunizations Immunizations are current?: Yes - POLST Patient has POLST: No PD ED PE NORMAL - Vitals Vital signs reviewed: Yes - General General: Alert and oriented X 3, No acute distress - Cardiac Cardiac: RRR, No murmur - Respiratory Respiratory: No respiratory distress, Clear bilaterally - Abdomen Abdomen: Normal bowel sounds, Soft, Non tender - Back Back: No CVA TTP, No spinal TTP - Derm Derm: Normal color, Warm and dry - Neuro Neuro: Alert and oriented X 3, Normal speech Results - Vitals Vitals: Vital Signs - 24 hr 10/27/19 10/27/19 10/27/19 12:24 13:54 14:28 Temperature 36.4 C L 37 C Heart Rate 65 72 72 Respiratory 16 16 12 Rate Blood Pressure 184/96 H 156/86 H 155/86 H O2 Saturation 100 98 100 Oxygen O2 Source Room air - Labs Labs: Laboratory Tests 10/27/19 10/27/19 10/27/19 12:28 12:30 12:34 WBC 10.0 RBC 4.86 Hgb 13.8 Hct 42.8 MCV 88.1 MCH 28.4 MCHC 32.2 RDW 13.4 Plt Count 296 MPV 9.8 Neut # (Auto) 6.1 Lymph # (Auto) 3.1 [place] # (Auto) 0.7 Eos # (Auto) 0.1 Baso # (Auto) 0.0 Absolute Nucleated RBC 0.00 Nucleated RBC % 0.0 Sodium Potassium Chloride Carbon Dioxide Anion Gap BUN Creatinine Estimated GFR (MDRD) Glucose Calcium Total Bilirubin AST ALT Alkaline Phosphatase Total Protein Albumin Globulin Albumin/Globulin Ratio Lipase Urine Color YELLOW Urine Clarity CLEAR Urine pH 6.0 Ur Specific [place] <=1.005 <=1.005 Urine Protein NEGATIVE Urine Glucose (UA) NEGATIVE Urine Ketones NEGATIVE Urine Occult Blood NEGATIVE Urine Nitrite NEGATIVE Urine Bilirubin NEGATIVE Urine Urobilinogen 0.2 (NORMAL) Ur Leukocyte Esterase TRACE H Urine RBC None Seen Urine WBC 0-3 Ur Squamous Epith Cells FEW Squamous Urine Bacteria None Seen Ur Microscopic Review INDICATED Urine HCG, Qual NEGATIVE 10/27/19 12:34 WBC RBC Hgb Hct MCV MCH MCHC RDW Plt Count MPV Neut # (Auto) Lymph # (Auto) [place] # (Auto) Eos # (Auto) Baso # (Auto) Absolute Nucleated RBC Nucleated RBC % Sodium 137 Potassium 3.6 Chloride 103 Carbon Dioxide 25 Anion Gap 9.0 BUN 12 Creatinine 0.6 Estimated GFR (MDRD) 107 Glucose 105 H Calcium 9.0 Total Bilirubin 0.9 AST 26 ALT 31 Alkaline Phosphatase 62 Total Protein 7.9 Albumin 4.3 Globulin 3.6 Albumin/Globulin Ratio 1.2 Lipase 35 Urine Color Urine Clarity Urine pH Ur Specific [place] Urine Protein Urine Glucose (UA) Urine Ketones Urine Occult Blood Urine Nitrite Urine Bilirubin Urine Urobilinogen Ur Leukocyte Esterase Urine RBC Urine WBC Ur Squamous Epith Cells Urine Bacteria Ur Microscopic Review Urine HCG, Qual PD MEDICAL DECISION MAKING - ED course ED course: 49-year-old woman with migratory abdominal pains and some symptoms of cystitis. Benign examination. No fever. Urine soft positive but a dilute sample. Lab work normal and CT with IV contrast interpreted contemporaneously by me was negative for acute pathology. Declined pain medication. Will treat for cystitis. Departure - Departure Disposition: 01 Home, Self Care Clinical Impression: Cystitis Abdominal pain Qualifiers: Abdominal location: generalized Qualified Code(s): R10.84 - Generalized abdominal pain Condition: Good Record reviewed to determine appropriate education?: Yes Instructions: ED UTI Cystitis Female Prescriptions: Nitrofurantoin Monohyd/M-Cryst [Macrobid 100 mg Capsule] 100 mg PO BID #10 ca psule Ondansetron Odt [Zofran] 4 mg TL Q6H PRN #10 tablet PRN Reason: Nausea / Vomiting Comments: We will culture your urine, the results should be done in 48-72 hours. If an antibiotic change is necessary we will call you. Return if worse in the meantime, especially if you develop increasing flank pain, fevers, or cannot keep down the medication. Follow-up with your doctor midweek for recheck. Discharge Date/Time: 10/27/19 14:30
[2019-10-27 12:53] LABS: BACTERIA,URINE None Seen /HPF (None Seen); RBC,URINE None Seen /HPF (0-5); SQUAMOUS EPITHELIAL CELL,UR FEW Squamous (<= Few)
[2019-10-27 12:54] LABS: BASOPHILS % (AUTO) 0.4 %; EOSINOPHILS # (AUTO) 0.1 10^3/uL (0.0-0.7); EOSINOPHILS % (AUTO) 1.1 %; HGB - HEMOGLOBIN 13.8 g/dL (12.0-16.0); LYMPHOCYTES # (AUTO) 3.1 10^3/uL (1.5-3.5); LYMPHOCYTES % (AUTO) 30.7 %; MEAN CORPUSCULAR HEMOGLOBIN 28.4 pg (27.0-31.0); MEAN CORPUSCULAR HGB CONC 32.2 g/dL (32.0-36.0); MEAN CORPUSCULAR VOLUME 88.1 fL (81.0-99.0); MEAN PLATELET VOLUME 9.8 fL (7.9-10.8); MONOCYTES # (AUTO) 0.7 10^3/uL (0.0-1.0); MONOCYTES % (AUTO) 6.7 %; NEUTROPHILS # (AUTO) 6.1 10^3/uL (1.5-6.6); NEUTROPHILS % (AUTO) 60.7 %; PLT - PLATELET COUNT 296 10^3/uL (130-450); RED BLOOD COUNT 4.86 10^6/uL (4.20-5.40); RED CELL DISTRIBUTION WIDTH 13.4 % (12.0-15.0)
[2019-10-27 13:09] LABS: ALBUMIN 4.3 g/dL (3.2-5.5); ALBUMIN/GLOBULIN RATIO 1.2 (1.0-2.2); BILIRUBIN,TOTAL 0.9 mg/dL (0.2-1.0); CREATININE 0.6 mg/dL (0.4-1.0); TOTAL PROTEIN 7.9 g/dL (6.7-8.2)
[2019-10-27] MEDS ORDERED: IOVERSOL 320 100 ML VIAL IVP ONE ×2 (13:13→13:38)
--- NOTE | 2019-10-27 14:11 | CT Report ---
PROCEDURE: Abdomen/Pelvis W INDICATIONS: IV only, RLQ pain CONTRAST: IV CONTRAST: Optiray 320 ml: 100 PO CONTRAST: *NO PO CONTRAST TECHNIQUE: After the administration of oral and intravenous contrast, 5 mm thick sections acquired from the diap hragms to the symphysis. 5 mm thick coronal and sagittal reformats were acquired. For radiation dos e reduction, the following was used: automated exposure control, adjustment of mA and/or kV accordin g to patient size. COMPARISON: CT abdomen and pelvis, 03/31/2018. FINDINGS: Image quality: Excellent. ABDOMEN: Lung bases: Lung bases are clear. Heart size is normal. Solid organs: Liver and spleen are normal in size and enhancement. Gallbladder is surgically absent . Biliary system is non dilated. Pancreas enhances normally. No adrenal nodules. Kidneys demonstr ate normal size and enhancement, without hydronephrosis. Peritoneum and bowel: Appendix is normal. Bowel loops demonstrate normal wall thickness and caliber. No free fluid or air. Nodes and vessels: No retroperitoneal or mesenteric adenopathy by size criteria. Aorta and inferior vena cava are normal in size. Miscellaneous: No ventral hernias. PELVIS: Genitourinary: Bladder wall thickness is normal. Uterus and ovaries are normal. There is a 2.5 cm d ominant left ovarian follicle. No pathological free fluid in the cul-de-sac. Miscellaneous: No inguinal hernias or adenopathy. Bones: No suspicious bony lesions. No vertebral body compression fractures. IMPRESSION: 1. Normal appendix. 2. No CT findings to explain right lower quadrant pain. Reviewed by: Ashwin Khan MD on 10/27/2019 2:10 PM PDT Approved by: Ashwin Khan MD on 10/27/2019 2:10 PM PDT Station ID: [id number]
[2019-10-27] MEDS ORDERED: NITROFURANTOIN MACRO 100 MG CAPSULE PO STA (14:22)
[2019-10-27 14:24] LABS: HCG UR QUAL NEGATIVE
[2019-10-27 14:29] VITALS: BP 155/86
== END 2019-10-27 14:30 | disposition home or self-care (01) ==
LOC: ED 12:12
DX: N30.90 Cystitis, unspecified without hematuria (principal); R10.84 Generalized abdominal pain; I10 Essential (primary) hypertension; Z90.49 Acquired absence of other specified parts of digestive tract
CPT/HCPCS: 36415; 74177; 80053; 81001; 81025; 83690; 85025; 87086; 99284; A9270; Q9967; 81003

== ENCOUNTER 2019-11-09 13:00 | Outpatient (CLI) | payer OTHER | END 2019-11-09 23:59 | disposition home or self-care (01) | LOC: LAB.R 13:00 | PROVIDERS: ATTEND Nurse Practitioner Family | DX: N39.0 Urinary tract infection, site not specified (principal) | CPT/HCPCS: 87086 ==

== ENCOUNTER 2019-12-06 14:43 | Outpatient (CLI) | payer OTHER | END 2019-12-06 14:44 | disposition home or self-care (01) | LOC: COV 14:43 | PROVIDERS: ATTEND Family Medicine | DX: Z11.59 Encounter for screening for other viral diseases (principal) ==

== ENCOUNTER 2020-01-17 20:39 | Emergency (ER) | payer OTHER ==
--- NOTE | 2020-01-17 21:13 | ED Physician Documentation ---
History of Present Illness - Stated complaint Stated Complaint: TONGUE NUMB, RACING HEART - Chief complaint Chief Complaint: Heent - History obtained from History obtained from: Patient - Additonal information Additional information: The patient is a 49-year-old female that Some sort of spicy snack chips earlier in the day and she felt like the tip of her tongue was a little bit sore and then felt some paresthesias to the tip of her tongue she then did a Google search that showed that she could be having a stroke and she presents to the emergency department for evaluation. She denies any facial droop or unilateral weakness or difficulty speaking she denies any symptoms currently whatsoever. Denies chest pain fever shortness of breath or syncope. Review of Systems Constitutional: reports: Reviewed and negative Eyes: reports: Reviewed and negative Ears: reports: Reviewed and negative Nose: reports: Reviewed and negative Throat: reports: Other (Paresthesia to the tip of her tongue) Cardiac: reports: Reviewed and negative Respiratory: reports: Reviewed and negative GI: reports: Reviewed and negative : reports: Reviewed and negative Skin: reports: Reviewed and negative Musculoskeletal: reports: Reviewed and negative Neurologic: reports: Reviewed and negative Psychiatric: reports: Reviewed and negative Endocrine: reports: Reviewed and negative Immunocompromised: reports: Reviewed and negative PD PAST MEDICAL HISTORY - Past Medical History Cardiovascular: Hypertension Respiratory: None Neuro: None Endocrine/Autoimmune: None 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 HEENT: None Psych: Anxiety Musculoskeletal: None Derm: None - Past Surgical History Past Surgical History: No General: Cholecystectomy - Present Medications Home Medications: Ambulatory Orders Medication Instructions Recorded Confirmed Desogestrel-Ethinyl Estradiol 1 each PO DAILY 08/17/13 09/05/18 [Reclipsen] Metoprolol Succinate [Toprol Xl] 50 mg PO DAILY 08/17/13 09/05/18 Pantoprazole [Protonix] 40 mg PO DAILY 03/31/18 09/05/18 Nitrofurantoin Monohyd/M-Cryst 100 mg PO BID #10 capsule 10/27/19 [Macrobid 100 mg Capsule] Ondansetron Odt [Zofran] 4 mg TL Q6H PRN #10 tablet 10/27/19 - Allergies Allergies/Adverse Reactions: Allergies Allergy/AdvReac Type Severity Reaction Status Date / Time citalopram hydrobromide * Allergy Intermediate Anxiety Verified 01/17/20 20:51 [From Celexa] sulfamethoxazole AdvReac Intermediate pain Verified 01/17/20 20:51 [From Septra] trimethoprim [From Septra] AdvReac Intermediate pain Verified 01/17/20 20:51 - Social History Does the pt smoke?: No Smoking Status: Never smoker Does the pt drink ETOH?: No Does the pt have substance abuse?: No - Immunizations Immunizations are current?: Yes - POLST Patient has POLST: No PD ED PE NORMAL - Vitals Vital signs reviewed: Yes - General General: Alert and oriented X 3, No acute distress, Well developed/nourished - HEENT HEENT: Atraumatic, PERRL, Moist mucous membranes, Pharynx benign, Dentition benign, Other (There is an aphthous ulcer on the distal aspect of the tongue.) - Neck Neck: Supple, no meningeal sign - Cardiac Cardiac: RRR, No murmur, No gallop, No rub, Strong equal pulses - Respiratory Respiratory: No respiratory distress, Clear bilaterally - Abdomen Abdomen: Normal bowel sounds, Soft, Non tender, Non distended, No organomegaly - Female Female : Deferred - Rectal Rectal: Deferred - Back Back: No CVA TTP, No spinal TTP - Derm Derm: Normal color, Warm and dry, No rash - Extremities Extremities: No deformity, No tenderness to palpate, Normal ROM s pain, No edema, No calf tenderness / cord - Neuro Neuro: Alert and oriented X 3, vp [employer] 2-12 intact, No motor deficit, No sensory deficit, Normal speech - Psych Psych: Normal mood, Normal affect - Free text exam Free text exam: Neurological exam:. No pronator drift,No facial droop, no unilateral weakness, cranial nerves II through XII are grossly intact, normal [id number], normal [id number], normal rapid alternating movements, sensations intact to light touch throughout. Strength is 5 of 5 in bilateral upper and lower extremities reflexes are 2+ and symmetric in bilateral patellar and Achilles she has a steady gait she is able to ambulate with out difficulty she has normal standing balance test. Results - Vitals Vitals: Vital Signs - 24 hr 01/17/20 01/17/20 20:40 21:56 Temperature 36.7 C 37.0 C Heart Rate 86 68 Respiratory 16 18 Rate Blood Pressure 155/98 H 149/95 H O2 Saturation 98 97 Oxygen O2 Source Room air PD MEDICAL DECISION MAKING - ED course Complexity details: considered differential, d/w patient ED course: 49-year-old female ate some sort of spicy snack today and then had some paresthesias to the tip of her tongue that of resolved she did a Google Internet search that said she could possibly having a stroke so she presents to the emergency department currently she is asymptomatic she does have an aphthous ulcer on the tip of her tongue. I did offer to do a stroke work-up or TIA work- up on this patient however she is refusing and would like to follow-up with her primary care provider on Monday. Departure - Departure Disposition: Home, Self Care Clinical Impression: Paresthesia of tongue, Aphthous ulcer of tongue Condition: Stable Instructions: ED Paraesthesias Follow-Up: Angel Fitzpatrick DO [Primary Care Provider] - Tomorrow Comments: please call your primary care provider tomorrow or on Monday to schedule a follow up. Return to the emergency department with unilateral weakness, facial droop or any concerns. Discharge Date/Time: 01/17/20 21:57
[2020-01-17 21:57] VITALS: BP 149/95
== END 2020-01-17 21:57 | disposition home or self-care (01) ==
LOC: ED 20:39
DX: K14.0 Glossitis (principal); R20.2 Paresthesia of skin; I10 Essential (primary) hypertension
CPT/HCPCS: 99281; 99282

== ENCOUNTER 2020-04-10 11:48 | Outpatient (CLI) | payer OTHER ==
[2020-04-10 18:04] LABS: BASOPHILS % (AUTO) 0.5 %; EOSINOPHILS % (AUTO) 0.5 %; LYMPHOCYTES # (AUTO) 2.8 10^3/uL (1.5-3.5); LYMPHOCYTES % (AUTO) 33.4 %; MEAN CORPUSCULAR HEMOGLOBIN 28.9 pg (27.0-31.0); MEAN CORPUSCULAR HGB CONC 31.3 g/dL (32.0-36.0); MEAN CORPUSCULAR VOLUME 92.4 fL (81.0-99.0); MEAN PLATELET VOLUME 10.6 fL (7.9-10.8); MONOCYTES # (AUTO) 0.5 10^3/uL (0.0-1.0); MONOCYTES % (AUTO) 5.8 %; NEUTROPHILS % (AUTO) 59.4 %; PLT - PLATELET COUNT 305 10^3/uL (130-450); RED BLOOD COUNT 4.85 10^6/uL (4.20-5.40); RED CELL DISTRIBUTION WIDTH 12.9 % (12.0-15.0); WHITE BLOOD COUNT 8.3 x10^3/uL (4.8-10.8)
[2020-04-10 18:53] LABS: ALBUMIN 4.4 g/dL (3.2-5.5); ALBUMIN/GLOBULIN RATIO 1.2 (1.0-2.2); ALKALINE PHOSPHATASE 62 IU/L (42-121); ALT ALANINE AMINOTRANSFERASE 19 IU/L (10-60); AST ASPARTATE AMINOTRANSFERASE 19 IU/L (10-42); BILIRUBIN,TOTAL 0.7 mg/dL (0.2-1.0); BUN - BLOOD UREA NITROGEN 17 mg/dL (6-20); CALCIUM 9.3 mg/dL (8.5-10.3); CARBON DIOXIDE - CO2 26 mmol/L (21-32); CHLORIDE 101 mmol/L (101-111); CHOL/HDL RATIO 5.4 (<4.4); CHOLESTEROL 215 mg/dL; CREATININE 0.7 mg/dL (0.4-1.0); GLUCOSE 110 mg/dL (70-100); HDL CHOLESTEROL 40 mg/dL; LDL CHOLESTEROL,CALCULATED 142 mg/dL; LDL/HDL RATIO 3.6 (<4.4); SODIUM 136 mmol/L (135-145); TOTAL PROTEIN 8.2 g/dL (6.7-8.2); VLDL CHOLESTEROL 33 mg/dL
[2020-04-10 19:34] LABS: HEMOGLOBIN A1c% 5.4 % (4.27-6.07)
== END 2020-04-10 23:59 | disposition home or self-care (01) ==
LOC: LAB.WCP 11:48
PROVIDERS: ATTEND Family Medicine
DX: E88.81 Metabolic syndrome and other insulin resistance (principal); Z79.899 Other long term (current) drug therapy
CPT/HCPCS: 36415; 80053; 80061; 83036; 83721; 84443; 85025

== ENCOUNTER 2020-07-21 22:16 | Emergency (ER) | payer OTHER ==
[2020-07-21] MEDS ORDERED: METOPROLOL TARTRATE 50 MG TABLET PO STA (23:08)
[2020-07-21 23:38] LABS: BASOPHILS # (AUTO) 0.1 10^3/uL (0.0-0.1); BASOPHILS % (AUTO) 0.5 %; EOSINOPHILS % (AUTO) 0.4 %; HCT - HEMATOCRIT 40.4 % (37.0-47.0); HGB - HEMOGLOBIN 13.2 g/dL (12.0-16.0); LYMPHOCYTES # (AUTO) 2.4 10^3/uL (1.5-3.5); LYMPHOCYTES % (AUTO) 25.3 %; MEAN CORPUSCULAR HEMOGLOBIN 29.2 pg (27.0-31.0); MEAN CORPUSCULAR HGB CONC 32.7 g/dL (32.0-36.0); MEAN CORPUSCULAR VOLUME 89.4 fL (81.0-99.0); MEAN PLATELET VOLUME 9.5 fL (7.9-10.8); MONOCYTES # (AUTO) 0.6 10^3/uL (0.0-1.0); MONOCYTES % (AUTO) 6.4 %; NEUTROPHILS # (AUTO) 6.5 10^3/uL (1.5-6.6); NEUTROPHILS % (AUTO) 67.1 %; PLT - PLATELET COUNT 240 10^3/uL (130-450); RED BLOOD COUNT 4.52 10^6/uL (4.20-5.40); RED CELL DISTRIBUTION WIDTH 12.9 % (12.0-15.0); WHITE BLOOD COUNT 9.6 x10^3/uL (4.8-10.8)
[2020-07-21 23:55] LABS: ALBUMIN 4.3 g/dL (3.2-5.5); ALBUMIN/GLOBULIN RATIO 1.3 (1.0-2.2); BILIRUBIN,TOTAL 0.6 mg/dL (0.2-1.0); CALCIUM 9.2 mg/dL (8.5-10.3); CREATININE 0.7 mg/dL (0.4-1.0); POTASSIUM 3.9 mmol/L (3.5-5.0); TOTAL PROTEIN 7.5 g/dL (6.7-8.2)
--- NOTE | 2020-07-22 00:10 | ED Physician Documentation ---
History of Present Illness - Stated complaint Stated Complaint: ELEVATED BP - Chief complaint Chief Complaint: Cardiac - History obtained from History obtained from: Patient - Additonal information Additional information: 49-year-old woman with past medical history of high blood pressure, former smoker remotely, Iniguez's esophagus presents with acute anxiety this evening and palpitations after taking her blood pressure on her home blood pressure cuff and finding it to be mildly elevated. She just got the blood pressure cuff today. Also states that she has had intermittent chest pain that is substernal nonradiating over the past month, intermittent, gradual onset and not exertional. She has been doing significant heavy lifting at work and work working a lot and has been under significant emotional stress. Denies fevers, shortness of breath, cough, nausea vomiting diaphoresis, leg swelling, recent travel/bedrest/surgery, or history of clots. 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 HEENT: None Psych: Anxiety Musculoskeletal: None Derm: None - Past Surgical History Past Surgical History: Yes General: Cholecystectomy - Present Medications Home Medications: Ambulatory Orders Medication Instructions Recorded Confirmed Desogestrel-Ethinyl Estradiol 1 each PO DAILY 08/17/13 07/21/20 [Reclipsen] Metoprolol Succinate [Toprol Xl] 40 mg PO DAILY 08/17/13 07/21/20 Pantoprazole [Protonix] 40 mg PO DAILY 03/31/18 07/21/20 - Allergies Allergies/Adverse Reactions: Allergies Allergy/AdvReac Type Severity Reaction Status Date / Time citalopram hydrobromide * Allergy Intermediate Anxiety Verified 07/21/20 22:24 [From Celexa] sulfamethoxazole AdvReac Intermediate pain Verified 07/21/20 22:24 [From Septra] trimethoprim [From Septra] AdvReac Intermediate pain Verified 07/21/20 22:24 - Social History Does the pt smoke?: No Smoking Status: Never smoker Does the pt drink ETOH?: No Does the pt have substance abuse?: No - Immunizations Immunizations are current?: Yes - POLST Patient has POLST: No PD ED PE NORMAL - Vitals Vital signs reviewed: Yes - General General: Alert and oriented X 3, No acute distress, Well developed/nourished - HEENT HEENT: Atraumatic, PERRL, EOMI - Neck Neck: Supple, no meningeal sign - Cardiac Cardiac: RRR, No murmur - Respiratory Respiratory: No respiratory distress, Clear bilaterally - Abdomen Abdomen: Non tender, Non distended - Derm Derm: Normal color, Warm and dry - Extremities Extremities: No deformity, No edema - Neuro Neuro: Alert and oriented X 3 - Psych Psych: Normal mood, Normal affect Results - Vitals Vitals: Vital Signs - 24 hr 07/21/20 07/21/20 07/21/20 22:20 22:31 23:07 Temperature 36.3 C L Heart Rate 102 H 66 91 Respiratory 16 20 20 Rate Blood Pressure 152/110 H 166/101 H O2 Saturation 98 100 100 07/21/20 07/21/20 23:22 23:54 Temperature 36.2 C L Heart Rate 89 82 Respiratory 14 17 Rate Blood Pressure 166/101 H 155/86 H O2 Saturation 100 98 Oxygen O2 Source Room air - Labs Labs: Laboratory Tests 07/21/20 07/21/20 07/21/20 23:30 23:30 23:30 WBC 9.6 RBC 4.52 Hgb 13.2 Hct 40.4 MCV 89.4 MCH 29.2 MCHC 32.7 RDW 12.9 Plt Count 240 MPV 9.5 Neut # (Auto) 6.5 Lymph # (Auto) 2.4 [place] # (Auto) 0.6 Eos # (Auto) 0.0 Baso # (Auto) 0.1 Absolute Nucleated RBC 0.00 Nucleated RBC % 0.0 Sodium 133 L Potassium 3.9 Chloride 99 L Carbon Dioxide 25 Anion Gap 9.0 BUN 18 Creatinine 0.7 Estimated GFR (MDRD) 90 Glucose 138 H Calcium 9.2 Total Bilirubin 0.6 AST 20 ALT 24 Alkaline Phosphatase 69 Troponin I High Sens 2.3 Total Protein 7.5 Albumin 4.3 Globulin 3.2 Albumin/Globulin Ratio 1.3 Lipase 37 PD MEDICAL DECISION MAKING - ED course ED course: 49-year-old woman presents with atypical chest pain over the past month associated with palpitations and anxiety, nonexertional. Her physical exam, chest x-ray, EKG, repeat EKG, and lab work were noncontributory and she had no cardiac events on the monitoring coordinator while here in the emergency room. Her heart score is 2 (age, 1 risk factor of high blood pressure). She will follow up with Dr. Fitzpatrick this week. Strict return precautions given. Departure - Departure Disposition: Home, Self Care Clinical Impression: Hypertension, Palpitations, Atypical chest pain, Anxiety Condition: Good Instructions: ED Chest Pain Atypical Unkn Cause Follow-Up: Angel Fitzpatrick DO [Primary Care Provider] - Comments: You were seen in the emergency department for high blood pressure and intermittent chest pain. Your blood work, EKG, and chest x-ray are not showing any concerning findings, and your blood pressure is not in a dangerous range. You should follow-up with Dr. Fitzpatrick this week. Return to the emergency department if you develop any new or worsening symptoms or other concerns. Forms: Activity restrictions
[2020-07-22 00:19] VITALS: BP 146/86
--- NOTE | 2020-07-22 08:29 | XRAY Report ---
PROCEDURE: Chest 1 View X-Ray INDICATIONS: Chest pain TECHNIQUE: One view of the chest was acquired. COMPARISON: 07/12/2019 FINDINGS: Surgical changes and devices: None. Lungs and pleura: No pleural effusions or pneumothorax. Lungs are clear. Mediastinum: Mediastinal contours appear normal. Heart size is normal. Bones and chest wall: No suspicious bony lesions. Overlying soft tissues appear unremarkable. IMPRESSION: No acute cardiopulmonary process demonstrated radiographically. Reviewed by: Ildefonso Ch MD on 07/22/2020 8:28 AM PDT Approved by: Ildefonso Ch MD on 07/22/2020 8:28 AM PDT Station ID: [id number]
== END 2020-07-22 00:32 | disposition home or self-care (01) ==
LOC: ED 22:16
DX: F41.9 Anxiety disorder, unspecified (principal); R00.2 Palpitations; R07.9 Chest pain, unspecified; Z87.891 Personal history of nicotine dependence
CPT/HCPCS: 36415; 71045; 80053; 83690; 84484; 85025; 93005; 99284; A9270

== ENCOUNTER 2021-05-11 09:45 | Outpatient (CLI) | payer BC, OTHER | END 2021-05-11 23:59 | disposition home or self-care (01) | LOC: LAB.N 09:45 | PROVIDERS: ATTEND Nurse Practitioner | DX: U07.1 COVID-19 (principal) ==

== ENCOUNTER 2022-01-18 11:20 | Outpatient (CLI) | payer BC ==
[2022-01-18 18:05] LABS: BASOPHILS # (AUTO) 0.1 10^3/uL (0.0-0.1); BASOPHILS % (AUTO) 0.7 %; EOSINOPHILS # (AUTO) 0.1 10^3/uL (0.0-0.7); EOSINOPHILS % (AUTO) 1.1 %; HCT - HEMATOCRIT 45.4 % (37.0-47.0); HGB - HEMOGLOBIN 14.9 g/dL (12.0-16.0); LYMPHOCYTES # (AUTO) 3.1 10^3/uL (1.5-3.5); LYMPHOCYTES % (AUTO) 34.7 %; MEAN CORPUSCULAR HEMOGLOBIN 29.2 pg (27.0-31.0); MEAN CORPUSCULAR HGB CONC 32.8 g/dL (32.0-36.0); MEAN PLATELET VOLUME 10.3 fL (7.9-10.8); MONOCYTES # (AUTO) 0.5 10^3/uL (0.0-1.0); MONOCYTES % (AUTO) 5.2 %; NEUTROPHILS # (AUTO) 5.2 10^3/uL (1.5-6.6); PLT - PLATELET COUNT 306 10^3/uL (130-450); RED CELL DISTRIBUTION WIDTH 13.1 % (12.0-15.0); WHITE BLOOD COUNT 8.9 x10^3/uL (4.8-10.8)
[2022-01-18 18:29] LABS: ALBUMIN 4.8 g/dL (3.2-5.5); ALBUMIN/GLOBULIN RATIO 1.4 (1.0-2.2); ALKALINE PHOSPHATASE 60 IU/L (42-121); ALT ALANINE AMINOTRANSFERASE 23 IU/L (10-60); AST ASPARTATE AMINOTRANSFERASE 20 IU/L (10-42); BILIRUBIN,TOTAL 0.6 mg/dL (0.2-1.0); BUN - BLOOD UREA NITROGEN 16 mg/dL (6-20); CALCIUM 9.5 mg/dL (8.5-10.3); CARBON DIOXIDE - CO2 29 mmol/L (21-32); CHLORIDE 98 mmol/L (101-111); CHOL/HDL RATIO 5.1 (<4.4); CHOLESTEROL 213 mg/dL; CREATININE 0.6 mg/dL (0.4-1.0); GFR - MDRD 106 (>89); GLUCOSE 97 mg/dL (70-100); HDL CHOLESTEROL 42 mg/dL; LDL CHOLESTEROL,CALCULATED 116 mg/dL; LDL/HDL RATIO 2.8 (<4.4); POTASSIUM 4.4 mmol/L (3.5-5.0); SODIUM 135 mmol/L (135-145); TOTAL PROTEIN 8.3 g/dL (6.7-8.2); TRIGLYCERIDES 276 mg/dL; VLDL CHOLESTEROL 55 mg/dL
[2022-01-18 18:43] LABS: THYROID STIMULATING HORMONE 2.9 uIU/mL (0.34-5.60)
[2022-01-18 19:12] LABS: FOLLICLE STIMULATING HORMONE 9.45 mIU/mL
== END 2022-01-18 11:21 | disposition home or self-care (01) ==
LOC: LAB.N 11:20
PROVIDERS: ATTEND Family Medicine
DX: I10 Essential (primary) hypertension (principal); N94.6 Dysmenorrhea, unspecified; E88.81 Metabolic syndrome and other insulin resistance; K22.70 Barrett's esophagus without dysplasia; E78.5 Hyperlipidemia, unspecified
CPT/HCPCS: 36415; 80053; 80061; 83001; 83721; 84443; 85025

== ENCOUNTER 2022-03-07 15:22 | Outpatient (CLI) | payer BC ==
--- NOTE | 2022-03-08 11:14 | Mammography Report ---
BILATERAL DIGITAL SCREENING MAMMOGRAM 3D/2D: 03/07/2022 CLINICAL: Routine screening. Comparison is made to exams dated: 09/27/2018 mammogram and 02/15/2016 mammogram - [facility]. Both breasts are almost entirely fatty (category a/<25% glandular tissue). No significant masses, calcifications, or other findings are seen in either breast. There has been no significant interval change. IMPRESSION: NEGATIVE There is no mammographic evidence of malignancy. A 1 year screening mammogram is recommended. Based on the Tyrer Cuzick model (a risk assessment model) the patients lifetime risk is 7.1% and her 10 year risk is 1.6%. According to the ACR, ACS, and NCCN guidelines, an annual breast MRI exam floyd g with mammogram is recommended if the patients lifetime risk is 20% or greater. This exam was interpreted at Station ID: [id number]. NOTE: For mammograms, a report in lay terms will be sent to the patient. Approximately 15% of breast malignancies will not be visualized mammographically. In the management of a palpable breast mass, a negative mammogram must not discourage biopsy of a clinically suspicious lesion. Electronically Signed By: Jose [email or web address]/daria:03/08/2022 10:17:11 ACR BI-RADS Category 1: Negative 3341F PARENCHYMAL PATTERN: (F) - The breast(s) demonstrate(s) diffuse fatty replacement. BI-RADS CATEGORY: (1) - 1 RECOMMENDATION: (ANNUAL) - Recommend routine annual screening mammography. [id number] 1 year screening LATERALITY: (B)
== END 2022-03-07 15:23 | disposition home or self-care (01) ==
LOC: DI.N 15:22
PROVIDERS: ATTEND Nurse Practitioner Family
DX: Z12.31 Encounter for screening mammogram for malignant neoplasm of breast (principal)

== ENCOUNTER 2022-03-14 00:45 | Emergency (ER) | payer BC ==
[2022-03-14 01:27] LABS: BASOPHILS % (AUTO) 0.3 %; EOSINOPHILS # (AUTO) 0.1 10^3/uL (0.0-0.7); EOSINOPHILS % (AUTO) 0.5 %; HCT - HEMATOCRIT 44.5 % (37.0-47.0); HGB - HEMOGLOBIN 14.6 g/dL (12.0-16.0); LYMPHOCYTES % (AUTO) 25.3 %; MEAN CORPUSCULAR HEMOGLOBIN 28.6 pg (27.0-31.0); MEAN CORPUSCULAR HGB CONC 32.8 g/dL (32.0-36.0); MEAN CORPUSCULAR VOLUME 87.1 fL (81.0-99.0); MEAN PLATELET VOLUME 9.6 fL (7.9-10.8); MONOCYTES # (AUTO) 0.7 10^3/uL (0.0-1.0); MONOCYTES % (AUTO) 5.7 %; NEUTROPHILS % (AUTO) 67.9 %; PLT - PLATELET COUNT 268 10^3/uL (130-450); RED BLOOD COUNT 5.11 10^6/uL (4.20-5.40); RED CELL DISTRIBUTION WIDTH 13.1 % (12.0-15.0); WHITE BLOOD COUNT 11.8 x10^3/uL (4.8-10.8)
--- NOTE | 2022-03-14 01:34 | XRAY Report ---
PROCEDURE: Chest 1 View X-Ray INDICATIONS: Chest pain TECHNIQUE: One view of the chest was acquired. COMPARISON: 07/21/2020. FINDINGS: Surgical changes and devices: None. Lungs and pleura: No pleural effusions or pneumothorax. Lungs are clear. Mediastinum: Mediastinal contours appear normal. Heart size is normal. Bones and chest wall: No suspicious bony lesions. Overlying soft tissues appear unremarkable. IMPRESSION: 1. No acute cardiopulmonary disease. Reviewed by: Brandon Randolph MD on 03/14/2022 1:32 AM [facility] [[email or web address]] Approved by: Brandon Randolph MD on 03/14/2022 1:32 AM [facility] [[email or web address]] Station ID: [id number]
[2022-03-14 01:43] LABS: ALBUMIN 4.3 g/dL (3.2-5.5); BILIRUBIN,TOTAL 0.9 mg/dL (0.2-1.0); CALCIUM 9.7 mg/dL (8.5-10.3); CREATININE 0.7 mg/dL (0.4-1.0); POTASSIUM 4.1 mmol/L (3.5-5.0); TOTAL PROTEIN 8.8 g/dL (6.7-8.2)
--- NOTE | 2022-03-14 02:25 | ED Physician Documentation ---
PD HPI CHEST PAIN - Stated complaint Stated Complaint: HIGH BP/CHEST PX - Chief complaint Chief Complaint: Cardiac - History obtained from History obtained from: Patient - History of Present Illness Timing - onset: Today Timing - onset during: Rest Timing - details: Abrupt onset Pain level now: 0 Quality: Pressure, Sharp Location: Substernal Radiation: Other (left side of head) Improved by: Nothing Worsened by: Other (no exacerbating factors) Associated symptoms: No: Shortness of air, Diaphoresis, Nausea, Vomiting, Feeling faint / dizzy, General Weakness, Palpitations, Cough Similar symptoms before: Has not had sx before - Additional information Additional information: c/o high blood pressures when measured at home during the day today, 144/100, then steadily increasing during the day to 180s/100s. This evening, she had "jolt" (per patient) of sharp midline chest pain that radiated to the left side of her head, but lasting only seconds. Subsequently, she developed gradual onset, constant chest discomfort described as "soreness" across anterior chest. Has not had these symptoms before but does have high blood pressure. Approximately 1 week ago, she had medication change; she had been on a smaller dose of BCP but this was increased. She was on the smaller dose because , previously, the higher dose was causing high blood pressure. To try to counteract anticipated increased blood pressure with this higher BCP dose, she was also prescribed a diuretic, although she did not take first dose until this evening. She takes metoprolol already (years). Review of Systems Constitutional: reports: Reviewed and negative Cardiac: reports: Chest pain / pressure. 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 : None HEENT: None Psych: Anxiety Musculoskeletal: None Derm: None - Past Surgical History Past Surgical History: Yes General: Cholecystectomy - Present Medications Home Medications: Ambulatory Orders Medication Instructions Recorded Confirmed Desogestrel-Ethinyl Estradiol 1 each PO DAILY 08/17/13 07/21/20 [Reclipsen] Metoprolol Succinate [Toprol Xl] 40 mg PO DAILY 08/17/13 07/21/20 Pantoprazole [Protonix] 40 mg PO DAILY 03/31/18 07/21/20 - Allergies Allergies/Adverse Reactions: Allergies Allergy/AdvReac Type Severity Reaction Status Date / Time citalopram hydrobromide * Allergy Intermediate Anxiety Verified 03/14/22 00:58 [From Celexa] sulfamethoxazole AdvReac Intermediate pain Verified 03/14/22 00:58 [From Septra] trimethoprim [From Septra] AdvReac Intermediate pain Verified 03/14/22 00:58 - Social History Does the pt smoke?: No Smoking Status: Never smoker Does the pt drink ETOH?: No Does the pt have substance abuse?: No - Immunizations Immunizations are current?: Yes - POLST Patient has POLST: No PD ED PE NORMAL - Vitals Vital signs reviewed: Yes - General General: Alert and oriented X 3, No acute distress, Well developed/nourished - HEENT HEENT: Moist mucous membranes - Neck Neck: Supple, no meningeal sign - Cardiac Cardiac: RRR, No murmur, No gallop, No rub - Respiratory Respiratory: No respiratory distress, Clear bilaterally - Abdomen Abdomen: Soft, Non tender - Extremities Extremities: No edema Results - Vitals Vitals: Oxygen O2 Source Room air - EKG (time done) No standard instances Rate: Rate (enter#) (84) Rhythm: NSR [place]: Normal Intervals: Normal [place] QRS: Normal Ischemia: Normal ST segments Compare to prior EKG: Unchanged from prior EKG Computer interpretation: Disagree with computer (no ST changes (elevation nor depression)) - Labs Labs: Laboratory Tests 03/14/22 03/14/22 03/14/22 01:20 01:20 01:20 WBC 11.8 H RBC 5.11 Hgb 14.6 Hct 44.5 MCV 87.1 MCH 28.6 MCHC 32.8 RDW 13.1 Plt Count 268 MPV 9.6 Neut # (Auto) 8.0 H Lymph # (Auto) 3.0 [place] # (Auto) 0.7 Eos # (Auto) 0.1 Baso # (Auto) 0.0 Absolute Nucleated RBC 0.00 Nucleated RBC % 0.0 Sodium 133 L Potassium 4.1 Chloride 99 L Carbon Dioxide 27 Anion Gap 7.0 BUN 13 Creatinine 0.7 Estimated GFR (MDRD) 89 Glucose 128 H Calcium 9.7 Total Bilirubin 0.9 AST 20 ALT 18 Alkaline Phosphatase 61 Troponin I High Sens 4.4 Total Protein 8.8 H Albumin 4.3 Globulin 4.5 H Albumin/Globulin Ratio 1.0 Lipase 50 - Rads (name of study) chest xray Radiology: Prelim report reviewed, See rad report PD MEDICAL DECISION MAKING - ED course Complexity details: reviewed results, re-evaluated patient, considered differential, d/w patient ED course: No concerning findings on tonight's tests, including EKG, blood tests (includes normal hs-cTn), CXR. She is given 0.2mg PO clonidine for persistently elevated blood pressures in ED with improvement to 160s/upper 80s. Results reviewed with patient, return precautions discussed, advised to contact primary care provider in the morning to arrange for immediate follow up Departure - Departure Disposition: Home, Self Care Clinical Impression: Chest pain Qualifiers: Chest pain type: unspecified Qualified Code(s): R07.9 - Chest pain, unspecified Hypertension Qualifiers: Hypertension type: unspecified Qualified Code(s): I10 - Essential (primary) hypertension Condition: Good Instructions: ED Chest Pain Atypical Unkn Cause, ED Hypertension Conf Out Of Control Follow-Up: Mireille Loya ARNP [Primary Care Provider] - Comments: There were no concerning nor diagnostic results on the tests performed tonight (including EKG, chest xray, and blood tests). Your blood pressures were high during your ER stay, but improved with a dose of clonidine (the blood pressure pill you were given in the ER). Since you have just started a new medication for high blood pressure (diuretic) yesterday, rather than change your medication regimen now, I recommend that you contact your primary care provider to arrange for follow up appointment to discuss any such adjustments, as well as to follow up for the chest discomfort you were having tonight. Discharge Date/Time: 03/14/22 04:17
[2022-03-14] MEDS ORDERED: cloNIDine 0.1 MG TABLET PO STA (02:49)
[2022-03-14 03:39] VITALS: BP 138/79
== END 2022-03-14 04:17 | disposition home or self-care (01) ==
LOC: ED 00:45
DX: I10 Essential (primary) hypertension (principal); R07.9 Chest pain, unspecified
CPT/HCPCS: 36415; 71045; 80053; 83690; 84484; 85025; 93005; 99284; A9270

== ENCOUNTER 2023-01-20 12:08 | Outpatient (CLI) | payer BC ==
[2023-01-20 18:50] LABS: BUN - BLOOD UREA NITROGEN 15 mg/dL (6-20); CALCIUM 9.6 mg/dL (8.5-10.3); CARBON DIOXIDE - CO2 28 mmol/L (21-32); CHLORIDE 103 mmol/L (101-111); CHOL/HDL RATIO 5.8 (<4.4); CHOLESTEROL 220 mg/dL; CREATININE 0.6 mg/dL (0.6-1.3); GFR - MDRD 106 (>89); GLUCOSE 104 mg/dL (74-104); HDL CHOLESTEROL 38 mg/dL; LDL CHOLESTEROL,CALCULATED 149 mg/dL; LDL/HDL RATIO 3.9 (<4.4); POTASSIUM 4.3 mmol/L (3.5-4.5); SODIUM 137 mmol/L (135-145); TRIGLYCERIDES 167 mg/dL (48-352); VLDL CHOLESTEROL 33 mg/dL
[2023-01-20 19:11] LABS: THYROID STIMULATING HORMONE 2.91 uIU/mL (0.34-5.60)
[2023-01-20 21:33] LABS: ESTIMATED AVERAGE GLUCOSE 108 mg/dL (70-100); HEMOGLOBIN A1c% 5.4 % (4.27-6.07)
== END 2023-01-20 12:09 | disposition home or self-care (01) ==
LOC: LAB.N 12:08
PROVIDERS: ATTEND Nurse Practitioner Family
DX: I10 Essential (primary) hypertension (principal); E88.81 Metabolic syndrome and other insulin resistance; K76.0 Fatty (change of) liver, not elsewhere classified; E78.5 Hyperlipidemia, unspecified
CPT/HCPCS: 36415; 80048; 80061; 83036; 83721; 84443

== ENCOUNTER 2023-02-09 18:57 | Emergency (ER) | payer BC ==
--- NOTE | 2023-02-09 19:35 | XRAY Report ---
PROCEDURE: Chest 1 View X-Ray INDICATIONS: Chest Pain TECHNIQUE: One view of the chest was acquired. COMPARISON: Chest x-ray, 03/14/2022. FINDINGS: Surgical changes and devices: None. Lungs and pleura: No pleural effusions or pneumothorax. Lungs are clear. Mediastinum: Mediastinal contours appear normal. Heart size is normal. Bones and chest wall: No suspicious bony lesions. Overlying soft tissues appear unremarkable. IMPRESSION: No acute cardiopulmonary process. Reviewed by: Ashwin Khan MD on 02/09/2023 7:34 PM PDT Approved by: Ashwin Khan MD on 02/09/2023 7:34 PM PDT Station ID: [id number]
[2023-02-09 19:38] LABS: BASOPHILS % (AUTO) 0.4 %; EOSINOPHILS # (AUTO) 0.1 10^3/uL (0.0-0.7); EOSINOPHILS % (AUTO) 0.8 %; HCT - HEMATOCRIT 39.8 % (37.0-47.0); HGB - HEMOGLOBIN 13.4 g/dL (12.0-16.0); LYMPHOCYTES # (AUTO) 2.3 10^3/uL (1.5-3.5); LYMPHOCYTES % (AUTO) 22.2 %; MEAN CORPUSCULAR HEMOGLOBIN 29.3 pg (27.0-31.0); MEAN CORPUSCULAR HGB CONC 33.7 g/dL (32.0-36.0); MEAN CORPUSCULAR VOLUME 86.9 fL (81.0-99.0); MEAN PLATELET VOLUME 9.6 fL (7.9-10.8); MONOCYTES # (AUTO) 0.6 10^3/uL (0.0-1.0); NEUTROPHILS # (AUTO) 7.3 10^3/uL (1.5-6.6); NEUTROPHILS % (AUTO) 70.2 %; PLT - PLATELET COUNT 260 10^3/uL (130-450); RED BLOOD COUNT 4.58 10^6/uL (4.20-5.40); RED CELL DISTRIBUTION WIDTH 12.8 % (12.0-15.0); WHITE BLOOD COUNT 10.4 x10^3/uL (4.8-10.8)
[2023-02-09 20:00] LABS: ALBUMIN 4.5 g/dL (3.2-5.5); ALBUMIN/GLOBULIN RATIO 1.4 (1.0-2.2); BILIRUBIN,TOTAL 0.5 mg/dL (0.2-1.0); CALCIUM 9.8 mg/dL (8.5-10.3); CREATININE 0.7 mg/dL (0.6-1.3); POTASSIUM 3.6 mmol/L (3.5-4.5); TOTAL PROTEIN 7.7 g/dL (6.4-8.9)
[2023-02-09 20:03] LABS: TROPONIN I HIGH SENSITIVITY 3.7 ng/L (2.3-14.8)
--- NOTE | 2023-02-09 20:18 | ED Physician Documentation ---
History of Present Illness - Stated complaint Stated Complaint: CHEST PRESSURE - Chief complaint Chief Complaint: Cardiac - History obtained from History obtained from: Patient - History of Present Illness Timing: Today Pain level max: 3 Pain level now: 0 - Additonal information Additional information: Patient is a 52-year-old female who presents to the emergency department stating around 430 today she had chest pressure. She states that it felt like she had a "filter" in her chest. She states she has been under increasing stress lately. Does not have any cardiac history in the past. She states she has had a normal stress test in the past. No fevers. No chills. Has had some rhinorrhea and cough. Has been around several people of been sick at work. She states her heart feels like it is racing, her normal heart rate is in the 60s to 70s. She is on metoprolol at home but has not taken it tonight. No recent travel. No recent surgery or immobilization. No calf swelling. No tenderness or pain in the legs. No history of blood clots. 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 HEENT: None Psych: Anxiety Musculoskeletal: None Derm: None - Past Surgical History Past Surgical History: Yes General: Cholecystectomy - Present Medications Home Medications: Ambulatory Orders Medication Instructions Recorded Confirmed Desogestrel-Ethinyl Estradiol 1 each PO DAILY 08/17/13 07/21/20 [Reclipsen] Metoprolol Succinate [Toprol Xl] 40 mg PO DAILY 08/17/13 07/21/20 Pantoprazole [Protonix] 40 mg PO DAILY 03/31/18 07/21/20 amLODIPine [Norvasc] 5 mg PO DAILY 02/09/23 - Allergies Allergies/Adverse Reactions: Allergies Allergy/AdvReac Type Severity Reaction Status Date / Time citalopram hydrobromide * Allergy Intermediate Anxiety Verified 02/09/23 19:20 [From Celexa] sulfamethoxazole AdvReac Intermediate pain Verified 02/09/23 19:20 [From Septra] trimethoprim [From Septra] AdvReac Intermediate pain Verified 02/09/23 19:20 - Social History Does the pt smoke?: No Smoking Status: Never smoker Does the pt drink ETOH?: No Does the pt have substance abuse?: No - Immunizations Immunizations are current?: Yes - POLST Patient has POLST: No PD ED PE NORMAL - Vitals Vital signs reviewed: Yes - General General: Alert and oriented X 3, No acute distress - HEENT HEENT: PERRL, Moist mucous membranes - Neck Neck: Supple, no meningeal sign - Cardiac Cardiac: RRR (tachycardic), Strong equal pulses - Respiratory Respiratory: No respiratory distress, Clear bilaterally - Abdomen Abdomen: Soft, Non tender, Non distended - Derm Derm: Warm and dry - Extremities Extremities: No edema, No calf tenderness / cord - Neuro Neuro: Alert and oriented X 3 - Psych Psych: Normal mood, Normal affect Results - Vitals Vitals: Vital Signs - 24 hr 02/09/23 02/09/23 02/09/23 19:02 20:01 21:35 Temperature 37.2 C Heart Rate 114 H 111 H 115 H Respiratory 18 18 18 Rate Blood Pressure 198/101 H 163/93 H 169/114 H O2 Saturation 97 99 100 Oxygen O2 Source Room air - EKG (time done) 1913 EKG releavant findings:: EKG personally interpreted by author of this note. Relevant findings are: Rate: Rate (enter#) (111) Rhythm: Sinus tachycardia [place]: Normal Intervals: Prolonged [place] QRS: Normal Ischemia: Normal ST segments - Labs Labs: Laboratory Tests 02/09/23 02/09/23 02/09/23 19:33 19:33 20:45 WBC 10.4 RBC 4.58 Hgb 13.4 Hct 39.8 MCV 86.9 MCH 29.3 MCHC 33.7 RDW 12.8 Plt Count 260 MPV 9.6 Neut # (Auto) 7.3 H Lymph # (Auto) 2.3 [place] # (Auto) 0.6 Eos # (Auto) 0.1 Baso # (Auto) 0.0 Absolute Nucleated RBC 0.00 Nucleated RBC % 0.0 Sodium 135 Potassium 3.6 Chloride 99 L Carbon Dioxide 30 Anion Gap 6.0 BUN 15 Creatinine 0.7 Estimated GFR (MDRD) 89 Glucose 167 H Calcium 9.8 Total Bilirubin 0.5 AST 20 ALT 24 Alkaline Phosphatase 71 Troponin I High Sens 3.7 Total Protein 7.7 Albumin 4.5 Globulin 3.2 Albumin/Globulin Ratio 1.4 Lipase 47 Nasal Adenovirus (PCR) NOT DETECTED Nasal B. parapertussis DNA (PCR) NOT DETECTED Nasal Coronavir 229E PCR NOT DETECTED Nasal Coronavir HKU1 PCR NOT DETECTED Nasal Coronavir NL63 PCR NOT DETECTED Nasal Coronavir OC43 PCR NOT DETECTED Nasal Enterovir/Rhinovir PCR NOT DETECTED Nasal Influenza B PCR NOT DETECTED Nasal Influenza A PCR NOT DETECTED Nasal Parainfluen 1 PCR NOT DETECTED Nasal Parainfluen 2 PCR NOT DETECTED Nasal Parainfluen 3 PCR NOT DETECTED Nasal Parainfluen 4 PCR NOT DETECTED Nasal RSV (PCR) NOT DETECTED Nasal B.pertussis DNA PCR NOT DETECTED Nasal C.pneumoniae (PCR) NOT DETECTED Karl Human Metapneumo PCR NOT DETECTED Nasal M.pneumoniae (PCR) NOT DETECTED Nasal SARS-CoV-2 (PCR) NOT DETECTED - Rads (name of study) cxr Relevant Findings:: Final report received, See rad report PD Medical Decision Making - ED course Complexity details: reviewed results, re-evaluated patient, considered differential, d/w patient ED course: 52-year-old female presents to the emergency department with atypical chest pain. She is markedly tachycardic. Respiratory PCR was sent. A CT pulmonary angiogram was ordered as well for possible PE. Lungs are clear to auscultation bilaterally. She is in sinus tachycardia. High sensitive troponin is negative. EKG does not show any acute ischemic abnormalities. A repeat troponin was ordered. The patient will be signed out to Dr. Moore For follow-up on the repeat high-sensitivity troponin as well as the pulmonary angiogram. Suspect if both of these are negative that the patient can be discharged home, likely to follow-up with her PCP. This document was made in part using voice recognition software. While efforts are made to proofread this document, sound alike and grammatical errors may occur. Departure - Departure Clinical Impression: Atypical chest pain, Sinus tachycardia Condition: Stable Forms: PCP List
[2023-02-09 21:35] VITALS: BP 169/114
[2023-02-09 21:51] LABS: B. PARAPERTUSSIS- RESP PCR PAN NOT DETECTED; B. PERTUSSIS- RESP PCR PANEL NOT DETECTED; C. PNEUMONIAE- RESP PCR PANEL NOT DETECTED; CORONAVIRUS 229E-RESP PCR NOT DETECTED; CORONAVIRUS HKU1-RESP PCR NOT DETECTED; CORONAVIRUS NL63-RESP PCR NOT DETECTED; CORONAVIRUS OC43-RESP PCR NOT DETECTED; HUMAN METAPNEUMOVIRUS NOT DETECTED; INFLUENZA A- RESP PCR PANEL NOT DETECTED; INFLUENZA B - RESP PCR PANEL NOT DETECTED; M. PNEUMONIAE- RESP PCR PANEL NOT DETECTED; PARAINFLUENZA VIRUS 1 NOT DETECTED; PARAINFLUENZA VIRUS 2 NOT DETECTED; PARAINFLUENZA VIRUS 3 NOT DETECTED; PARAINFLUENZA VIRUS 4 NOT DETECTED; RHINOVIRUS/ENTEROVIRUS NOT DETECTED; RSV- RESP PCR PANEL NOT DETECTED; SARS-CoV-2 -RESP PCR PANEL NOT DETECTED
--- NOTE | 2023-02-09 23:11 | CT Report ---
PROCEDURE: ANGIO CHEST W/WO INDICATIONS: tachycardia, chest pain CONTRAST: Omni 300 80ml TECHNIQUE: After the administration of intravenous contrast, 2 mm axial images were acquired from the pulmonary apices to the posterior costophrenic angles during the arterial phase. In addition, 1 mm lung kernel and 5 mm soft tissue kernel reconstructions were performed. 3-dimensional coronal oblique maximum int ensity projection (MIP) reformats, 8 mm axial MIP, and 5 mm coronal and sagittal MPR reformats were t hen performed through the thorax. For radiation dose reduction, the following was used: automated exp osure control, adjustment of mA and/or kV according to patient size. COMPARISON: Same-day radiograph FINDINGS: Image quality: Good Lungs and pleura:No dense consolidation. No pleural effusions. Mediastinum, heart, and esophagus: No acute pulmonary embolism. Mild distal esophageal fluid. Normal heart size. No pathologic lymph nodes by size criteria. Chest wall and thyroid: Thyroid is unremarkable. Chest wall is unremarkable. Upper abdomen: Suspected hepatic steatosis. No gross abnormality on this arterial phase study. Cholec ystectomy clips are seen. Bones: No acute or suspicious osseous finding. IMPRESSION: No acute thoracic abnormality. No acute pulmonary embolism. Reviewed by: Giovani Smith MD on 02/09/2023 11:10 PM PDT Approved by: Giovani Smith MD on 02/09/2023 11:10 PM PDT Station ID: [id number]
[2023-02-10 00:06] VITALS: O2SAT 99
--- NOTE | 2023-02-10 00:06 | ED Physician Documentation ---
Departure - Departure Disposition: 01 Home, Self Care Clinical Impression: Atypical chest pain, Sinus tachycardia Condition: Stable Instructions: ED Chest Pain Atypical Unkn Cause Comments: Thank you for allowing us to care for you today at [facility]. Today in the emergency department your evaluated for any possible dangerous or life-threatening medical emergency. All of the testing performed in the emergency department today including your EKG, blood work and the CT scan of your chest were all very reassuring. We will no dangerous cause for your symptoms was found it is important that you follow-up with your primary care doctor soon as possible concerning your ER visit. I want you to drink plenty of fluids and get plenty of rest over the course the next few days. If it anytime you have new or worsening symptoms please return to the emergency department. Forms: PCP List
[2023-02-10] MEDS ORDERED: iohexoL-300 100 ML VIAL IVP ONE (04:45)
== END 2023-02-10 00:12 | disposition home or self-care (01) ==
LOC: ED 18:57
DX: R07.89 Other chest pain (principal); R00.0 Tachycardia, unspecified; Z20.822 Contact with and (suspected) exposure to COVID-19
CPT/HCPCS: 36415; 71045; 71275; 80053; 83690; 84484; 85025; 87633; 93005; 99283; 99284; Q9967

== ENCOUNTER 2023-12-22 09:15 | Outpatient (CLI) | payer BC ==
--- NOTE | 2023-12-22 15:25 | XRAY Report ---
PROCEDURE: Foot 3+V RT INDICATIONS: HEEL PAIN, RIGHT TECHNIQUE: 3 views of the foot were acquired. COMPARISON: None. FINDINGS: Bones: No fractures or dislocations. No suspicious bony lesions. There is a moderately prominent p lantar fascial insertion spur and also mild to moderate Achilles tendon insertion spur at the posteri or calcaneus. Soft tissues: No tibiotalar joint effusion. Achilles tendon appears normal. IMPRESSION: Calcaneal spurring as discussed, posterior areas at the plantar fascia and Achilles tendon insertions . Reviewed by: Ronaldo Lombardo MD on 12/22/2023 3:24 PM PDT Approved by: Ronaldo Lombardo MD on 12/22/2023 3:24 PM PDT Station ID: [id number]
== END 2023-12-22 09:30 | disposition home or self-care (01) ==
LOC: DI.N 09:15
PROVIDERS: ATTEND Family Medicine
DX: M77.31 Calcaneal spur, right foot (principal)